=== PATIENT | female | born 1930 | race Two or more races ===

== ENCOUNTER 2017-12-23 03:04 | Inpatient (IN) | payer MEDICARE, OTHER ==
[~2017-12-23] VITALS: Ht 167.6 cm; Wt 62.2 kg
[2017-12-23] VITALS (37 sets, daily range): BP systolic 69–143; BP diastolic 38–85
--- NOTE | 2017-12-23 03:23 | NUR ---
PT TO ER BED 4. PT BIBRA FROM HOME C/O ABD PAIN X 1 WEEK WITH NAUSEA. DENIES V-D. VSS/RESP EVEN UNLABORED/NAD NOTED/AFEBRILE/SKIN WARM AND DRY/AOX4. AWAITING MD GONZALES.
[2017-12-23] MEDS ORDERED: MORPHINE SULFATE INJ 2 MG/ML DISP.SYRIN IV ONE (03:30)
[2017-12-23] MEDS ORDERED: ONDANSETRON HCL/PF 4 MG/2 ML VIAL IVP ONE (03:30)
[2017-12-23] MEDS ORDERED: IV NS 0.9% 500 ML BAG IV ONE (03:30)
--- NOTE | 2017-12-23 03:30 | NUR ---
AT BEDSIDE FOR EVAL.
[2017-12-23] MEDS ORDERED: ONDANSETRON HCL/PF 4 MG/2 ML VIAL ONE (03:31)
[2017-12-23] MEDS ORDERED: MORPHINE SULFATE INJ 4 MG/ML DISP.SYRIN ONE (03:32)
--- NOTE | 2017-12-23 03:35 | NUR ---
20G IV TO L AC X 1 ATTEMPT USING ASEPTIC TECH, BLOOD HANDED OVER TO LAB AT BEDSIDE. IV FLUSHES EASILY WITH NS, NO S/S INFILTRATION NOTED.
--- NOTE | 2017-12-23 03:46 | NUR ---
PT TO CT VIA STRETCHER. VSS.
--- NOTE | 2017-12-23 04:00 | NUR ---
PT BACK FROM CT.
[2017-12-23 04:04] LABS: BASOPHILS # (AUTO) 0.1 /CMM (0.0-0.2); BASOPHILS % (AUTO) 0.8 % (0.0-2.0); EOSINOPHILS # (AUTO) 0.2 /CMM (0.0-0.7); EOSINOPHILS % (AUTO) 1.8 % (0.0-6.0); HEMATOCRIT 37 % (33-45); HEMOGLOBIN 12.3 g/dL (11.5-14.8); LYMPHOCYTES % (AUTO) 27.6 % (20.0-44.0); MEAN CORPUSCULAR HEMOGLOBIN 29 PG (26.0-33.0); MEAN CORPUSCULAR HGB CONC 33 g/dl (31.0-36.0); MEAN CORPUSCULAR VOLUME 87 fL (82-100); MONOCYTES # (AUTO) 0.3 /CMM (0.1-1.30); MONOCYTES % (AUTO) 3.2 % (2.0-12.0); NEUTROPHILS # (AUTO) 7.1 /CMM (1.8-8.9); NEUTROPHILS % (AUTO) 66.6 % (43.0-81.0); PLATELET COUNT (AUTO) 625 /CMM (150-450); RDW COEFFICIENT OF VARIATION 15.6 (11.5-15.0); RED BLOOD CELL COUNT(AUTO) 4.29 MIL/uL (4.0-5.2); WHITE BLOOD COUNT (AUTO) 10.7 K/uL (4.3-11.0)
[2017-12-23 04:19] LABS: CALCIUM, SERUM 9.4 mg/dL (8.5-10.1); CARBON DIOXIDE 24 mmol/L (21-32); CHLORIDE 105 mmol/L (98-107); CREATININE 1.4 mg/dL (0.6-1.3); GLUCOSE 119 mg/dL (74-106); POTASSIUM 3.8 mmol/L (3.5-5.1); SODIUM SERUM 139 mmol/L (136-145); UREA NITROGEN, BLOOD 34 mg/dL (7-18)
[2017-12-23] MEDS ORDERED: PIPERACILLIN /TAZOBACTAM 3.375 G VIAL IV ONE (04:19)
--- NOTE | 2017-12-23 04:20 | NUR ---
LAB AT BEDSIDE TO DRAW BLOOD CULT X 2.
[2017-12-23 04:25] LABS: TROPONIN I < 0.017 ng/mL (0.00-0.056)
[2017-12-23 04:27] LABS: ALANINE AMINOTRANSFERASE 19 U/L (12-78); ALBUMIN 1.8 g/dL (3.4-5.0); ALKALINE PHOSPHATASE 170 U/L (46-116); ASPARTATE AMINOTRANSFERASE 19 U/L (15-37); BILIRUBIN,DIRECT 0.1 mg/dL (0.0-0.2); BILIRUBIN,TOTAL 0.5 mg/dL (0.2-1.0); LIPASE 55 U/L (73-393); TOTAL PROTEIN, SERUM 6.2 g/dL (6.4-8.2)
[2017-12-23] MEDS ORDERED: PIPERACILLIN /TAZOBACTAM 3.375 G in IV D5W 50 ML IV ONE (04:30)
--- NOTE | 2017-12-23 04:34 | NUR ---
DR. HENDRICKSON CALLED; TRANSFERED TO DR. CAI
--- NOTE | 2017-12-23 04:34 | NUR ---
DR. DANDRE DUMAS
[2017-12-23] MEDS ORDERED: IV NS 0.9% 1,000 ML IV PRN (04:38)
[2017-12-23] MEDS ORDERED: MORPHINE SULFATE INJ 2 MG/ML DISP.SYRIN IV PRN (05:00)
[2017-12-23] MEDS ORDERED: FURO-144 PO (05:06)
[2017-12-23] MEDS ORDERED: METO-357 PO (05:06)
[2017-12-23] MEDS ORDERED: VALS160T2 PO (05:06)
[2017-12-23] MEDS ORDERED: FOLI1TAB16 PO (05:06)
[2017-12-23] MEDS ORDERED: ASPI-1169 PO (05:09)
[2017-12-23] MEDS ORDERED: PRAV40TA3 PO (05:09)
[2017-12-23] MEDS ORDERED: LEVO50TA8 PO (05:09)
--- NOTE | 2017-12-23 05:11 | NUR ---
TELE 324-
--- NOTE | 2017-12-23 05:23 | NUR ---
PT STATES SHE "DOES NOT HAVE TO GO TO THE BATHROOM", PT AND PT FAMILY REFUSE CATHETER. MD AWARE AND AT BEDSIDE.
[2017-12-23] MEDS ORDERED: LIDOCAINE 0.5% HCL 50 ML VIAL ONE (05:48)
[2017-12-23] MEDS ORDERED: BUPIVACAINE 0.25% 75 MG/30 ML VIAL ONE (05:48)
[2017-12-23] MEDS ORDERED: ANESTHESIA TRAY IN PYXIS 1 EA TRAY MC ONE (05:48)
--- NOTE | 2017-12-23 05:53 | NUR ---
PT WILL BE GOING TO OR FROM ER.
--- NOTE | 2017-12-23 06:20 | NUR ---
PT TRANSPORTED TO SURGERY VIA STRETCHER WITH OR NURSE. VSS.
[2017-12-23] MEDS: PANTOPRAZOLE 40 MG VIAL IV SCH ×3 (07:30→20:23)
--- NOTE | 2017-12-23 10:34 | NUR ---
CALLED TO RECOVERY AT 09:45AM ABOUT A PT EXTUBATED, THEN RE-INTUBATED DUE TO RESP. FAILURE, VENT NEEDED. VENT TAKEN TO RECOVERY, DR. NICHOLS GAVE VERBAL ORDERS FOR VENT SETTINGS, AC 16, 450, 100%, 0 PEEP. PT RE-TAPED PER DR. NICHOLS REQUEST, PT IS INTUBATED VIA 7.0 ETT AT 21CM AT THE LIP. PT THEN TRANSFERRED FROM RECOVERY TO ICU 120. VENT PLUGGED INTO RED OUTLET. PT ON VENT VIA SAME SETTINGS. AMBU-BAG AT [facility]. NO RESP. DISTRESS NOTED AT THIS TIME. Addendum: 12/23/17 at 1040 by JOSE HEADLEY RT Amended: Links added.
--- NOTE | 2017-12-23 11:00 | NUR ---
SOLE CUTTER ADMITTED INTO ICU FROM OR VIA [facility] WITH MONITOR. PT S/P EXP LAP WITH DUODENAL REPAIR AND LYSIS OF ADHESIONS. PT REINTUBATED IN PACU FOR RESP DISTRESS. PT NOW WITH 7.0 ETT 21 CM AT LIPLINE. CONNECTED ON VENT WITH STABLE SPO2. ABD DRESSINGS INTACT, CLEAN AND DRY. BROOKE DRAIN WITH SEROSANGUINEOUS DRAINAGE. F/C INTACT WITH CLEAR YELLOW URINE. PT REMAINS SEDATED.
--- NOTE | 2017-12-23 11:25 | NUR ---
ICU/RN DR AMOS AT BEDSIDE AND ASSESSED PT.ORDERS RECEIVED.PT WILL RECEIVE 500ML NS WIDE OPEN.PT. LETHARGIC BUT READILY AROUSES. Addendum: 12/24/17 at 0310 by THELMA JACOBSON RN ABOVE NOTES SHOULD BE AT 2325 INSTEAD OF 1125
--- NOTE | 2017-12-23 11:30 | NUR ---
INITIAL PT BACK FROM SURGERY REPORT TAKEN FROM BRAYAN CHARGE NURSE. PT OBTUNDED FROM ANESTHESIA HOWEVER RESPONDS BY OPENING EYES TO DAUGHTER. PT ON VENTILATOR AC 16, VT 450 PEEP 0 FIO2 60% PT HAS MAURO CATHETER DRAINING CLEAR YELLOW 30 CC. PT 20 PIV IN [place]UCHO CLEAN AND DRY NO SWELLING OR REDNESS. PT BLOOD PRESSURE 88 SYSTOLIC MD AWARE GIVEN FLUID BOLUS 500 MLS AND STARTED ON NS DRIP AT 75 MLS PER HOUR. BED IN LOW POSITION ALARMS ON.CALL VERGARA NEXT TO PT.
[2017-12-23 12:15] LABS: ABG BASE EXCESS -6.4 mmol/L; ABG OXYGEN SATURATION 94.9 % (92.0-98.5); ABG PCO2 33.3 mmHg (35.0-45.0); ABG PH 7.358 (7.350-7.450); ABG PO2 86.1 mmHg (75.0-100.0); AaDO2 305.1 mmHg; COHb 0.3 % (0.5-1.5); MetHb 0.1 % (0.0-1.5); O2Hb 94.5 % (94.0-97.0); PEEP,BG 0 cm H2O; SITE, ABG Right Radial; VT, ABG 450 mL
[2017-12-23] MEDS: SUCRALFATE 1 G/10 ML UDC PO SCH ×2 (13:00→20:55)
[2017-12-23] MEDS: ZOSYN IVPB 3.375 G in IV D5W 50ml IV SCH ×3 (13:11→23:30)
[2017-12-23] MEDS: IV D5/0.45 NACL W/20 MEQ KCL 1L IV PRN ×2 (13:25)
[2017-12-23 13:54] LABS: CARBON DIOXIDE 21 mmol/L (21-32); CHLORIDE 112 mmol/L (98-107); CREATININE 1.2 mg/dL (0.6-1.3); GLUCOSE 169 mg/dL (74-106); POTASSIUM 3.7 mmol/L (3.5-5.1); SODIUM SERUM 143 mmol/L (136-145); UREA NITROGEN, BLOOD 30 mg/dL (7-18)
--- NOTE | 2017-12-23 13:54 | NUR ---
DAUGHTER TELEPHONE NUMBER: NAME MAYA HO SEEN BY MD CROWELL
[2017-12-23 14:02] LABS: HEMATOCRIT 32 % (33-45); HEMOGLOBIN 10.3 g/dL (11.5-14.8); LYMPHOCYTES # (AUTO) 0.4 /CMM (0.8-4.8); LYMPHOCYTES % (AUTO) 1.9 % (20.0-44.0); MEAN CORPUSCULAR HEMOGLOBIN 29 PG (26.0-33.0); MEAN CORPUSCULAR HGB CONC 33 g/dl (31.0-36.0); MEAN CORPUSCULAR VOLUME 87 fL (82-100); MONOCYTES # (AUTO) 0.2 /CMM (0.1-1.30); NEUTROPHILS # (AUTO) 22.3 /CMM (1.8-8.9); NEUTROPHILS % (AUTO) 97.1 % (43.0-81.0); PLATELET COUNT (AUTO) 502 /CMM (150-450); RDW COEFFICIENT OF VARIATION 15.1 (11.5-15.0); RED BLOOD CELL COUNT(AUTO) 3.62 MIL/uL (4.0-5.2)
[2017-12-23 14:06] LABS: ALANINE AMINOTRANSFERASE 85 U/L (12-78); ALKALINE PHOSPHATASE 117 U/L (46-116); ASPARTATE AMINOTRANSFERASE 124 U/L (15-37); BILIRUBIN,TOTAL 0.5 mg/dL (0.2-1.0); MAGNESIUM 1.3 mg/dL (1.8-2.4); TOTAL PROTEIN, SERUM 4.5 g/dL (6.4-8.2)
[2017-12-23 14:18] LABS: ALBUMIN 1.3 g/dL (3.4-5.0)
--- NOTE | 2017-12-23 14:27 | NUR ---
NOAH DE SANTIAGO FOR ALBUMIN LAB VALUE
[2017-12-23 14:57] LABS: BAND % (MANUAL) 15 % (0.0-5.0); LYMPHOCYTES % (MANUAL) 2 % (16-48); NEUTROPHILS % (MANUAL) 83 (42-76)
[2017-12-23] MEDS: ONDANSETRON HCL/PF 4 MG/2 ML VIAL IVP PRN ×3 (15:41→18:54)
[2017-12-23] MEDS: Magnesium 1GM/D5W 100ML PREMIX 100 ML IV SCH ×4 (15:41→20:23)
[2017-12-23] MEDS: PROPOFOL 100 ML IV PRN (15:54)
--- NOTE | 2017-12-23 19:32 | NUR ---
ENDING PT REMAINS ON VENTILATOR NO CHANGE IN SETTINGS. ALERT AND ORIENTED FAMILY IN WAITING ROOM CARDIAC STILL NSR ON DIPROVAN AT 10 MCG PIV AND D51/2 NS WITH 20mEQ K+ TEMPERATURE NORMALIZED FROM AM TO 97.5 FROM 94.7 REPORT GIVEN TO THELMA
--- NOTE | 2017-12-23 19:45 | NUR ---
ICU/RN RECEIVED PT.RESTLESS,ATTEMPTING TO PULL LINES AND J-P DRAIN.ON VENT VIA ORAL ETT.ON DIPRIVAN AT 10MCG/KG/MIN.CALM AFTER TALKING TO PATIENT RE:IMPORTANCE OF ABOVE.BP. LOW.CALL PLACED TO DR AMOS VIA EXCHANGE.
[2017-12-23] MEDS ORDERED: IV NS 0.9% 1,000 ML BAG IV PRN (20:00)
[2017-12-23] MEDS ORDERED: IV NS 0.9% 1,000 ML IV ONE (20:00)
--- NOTE | 2017-12-23 20:20 | NUR ---
ICU/RN DR AMOS CALLED BACK AND GAVE ORDERS,NORMAL SALINE 1L WIDE OPEN IV BOLUS.AND BILATERAL WRIST RESTRAINTS APPLIED.FAMILY AT BEDSIDE VISITING,UPDATED W/ PT'S CONDITION.
[2017-12-23] MEDS ORDERED: Magnesium 1GM/D5W 100ML PREMIX 100 ML IV SCH (21:00)
--- NOTE | 2017-12-23 22:09 | NUR ---
pt received on vent via charted route and settings. ambu bag at bedside alarms set and audible. disconnect alarms checked. vent plugged into red outlet. tolerating vent settings at ths time. will continue to monitor Addendum: 12/23/17 at 2209 by CHUCHO DAN RT Amended: Links added.
--- NOTE | 2017-12-23 22:30 | NUR ---
ICU/RN CALL PLACED TO DR AMOS FOR LOW BP.
[2017-12-23] MEDS ORDERED: NOREPINEPHRINE 8 MG in IV D5W 500 ML IV PRN (23:30)
[2017-12-23] MEDS ORDERED: IV NS 0.9% 500 ML IV ONE (23:30)
[2017-12-24] VITALS (65 sets, daily range): BP systolic 72–139; BP diastolic 34–110
--- NOTE | 2017-12-24 | NUR ---
ICU/RN LS=580/54 AFTER SECOND BOLUS OF IV.SEE EMAR.
[2017-12-24] MEDS ORDERED: IV PREMIX D5 1/2NS + KCL 1,000 ML IV ONE (04:18)
[2017-12-24] MEDS: IV D5/0.45 NACL W/20 MEQ KCL 1L IV PRN ×4 (04:29→15:01)
[2017-12-24] MEDS: PROPOFOL 100 ML IV PRN (04:35)
[2017-12-24] MEDS: SUCRALFATE 1 G/10 ML UDC PO SCH ×3 (05:00→21:00)
[2017-12-24 05:01] LABS: HEMATOCRIT 31 % (33-45); HEMOGLOBIN 10.3 g/dL (11.5-14.8); LYMPHOCYTES # (AUTO) 1.5 /CMM (0.8-4.8); LYMPHOCYTES % (AUTO) 6.1 % (20.0-44.0); MEAN CORPUSCULAR HEMOGLOBIN 29 PG (26.0-33.0); MEAN CORPUSCULAR HGB CONC 33 g/dl (31.0-36.0); MEAN CORPUSCULAR VOLUME 88 fL (82-100); MONOCYTES # (AUTO) 0.3 /CMM (0.1-1.30); MONOCYTES % (AUTO) 1.3 % (2.0-12.0); NEUTROPHILS # (AUTO) 22.2 /CMM (1.8-8.9); NEUTROPHILS % (AUTO) 92.6 % (43.0-81.0); PLATELET COUNT (AUTO) 500 /CMM (150-450); RDW COEFFICIENT OF VARIATION 15.5 (11.5-15.0); RED BLOOD CELL COUNT(AUTO) 3.55 MIL/uL (4.0-5.2); WHITE BLOOD COUNT (AUTO) 23.9 K/uL (4.3-11.0)
[2017-12-24] MEDS: MORPHINE SULFATE INJ 4 MG/ML DISP.SYRIN IV PRN ×2 (05:03→22:27)
[2017-12-24 05:16] LABS: CALCIUM, SERUM 8.1 mg/dL (8.5-10.1); CARBON DIOXIDE 17 mmol/L (21-32); CHLORIDE 111 mmol/L (98-107); CREATININE 1.4 mg/dL (0.6-1.3); GLUCOSE 176 mg/dL (74-106); MAGNESIUM 2.8 mg/dL (1.8-2.4); PHOSPHORUS 2.8 mg/dL (2.5-4.9); SODIUM SERUM 140 mmol/L (136-145); UREA NITROGEN, BLOOD 28 mg/dL (7-18)
[2017-12-24] MEDS: ZOSYN IVPB 3.375 G in IV D5W 50ml IV SCH ×4 (05:30→23:37)
[2017-12-24 05:32] LABS: CHOLESTEROL 89 mg/dL (<200); HDL CHOLESTEROL 57 mg/dL (40-60); LDL 24 mg/dL (0-99); THYROID STIMULATING HORMONE 2.836 uIU/mL (0.358-3.74); TRIGLYCERIDES 70 mg/dL (30-150)
[2017-12-24 05:50] LABS: BAND % (MANUAL) 7 % (0.0-5.0); LYMPHOCYTES % (MANUAL) 6 % (16-48); MONOCYTES % (MANUAL) 2 % (0-11.0); NEUTROPHILS % (MANUAL) 85 (42-76)
--- NOTE | 2017-12-24 07:30 | NUR ---
INITIAL PT RESTING COMFORTABLY EASILY AROUSALED NSR ON HEADLIGHT ADJUSTER. ON VENTILATOR RATE 16 PEEP 0 VT 450 FIO2 50% IN NO DISTRESS RESPIRATION EASY.PT SKIN INTACT PT NPO ON FLUIDS D51/2 NS WITH 20 KCL AT 100MLS/HR. SITE CLEAN DRY AND INTACT 29 G. PT HAS ANOTHER PIV IN RAC H/L 20 G FLUSHES EASY. PT HAS BROOKE DRAIN WITH SEROSANGUINEOUS FLUID EVACUATING. PT HAS MAURO DRAINING WITH CLEAR YELLOW OUT PUT. BED IN LOW POSITION ALARMS EXPLORATION DRILLER VERGARA NEXT TP PT.
[2017-12-24] MEDS: PANTOPRAZOLE 40 MG VIAL IV SCH ×2 (08:00→21:01)
--- NOTE | 2017-12-24 08:13 | NUR ---
PT REC'D INTUBATED VIA A 7.0 ETT AT 21CM AT THE LIP. VENT SETTINGS PER MD REQUEST, ALARMS SET AND AUDIBLE PER POLICY. PT IS CURRENTLY OFF SEDATION, IS AWAKE AND ALERT. UNABLE TO COMMUNICATE WITH PT DUE TO PT SPEAKING IRAQI ONLY. PT PLACED ON SIMV 4, PS 12, 40%, +[address] LARSON ORDERS. NO SOB NOTED AT THIS TIME. NICOLLE MARTINEZ IS AWARE. WILL CONTINUE TO MONITOR PT. Addendum: 12/24/17 at 0837 by JOSE HEADLEY RT Amended: Links added.
[2017-12-24 09:28] LABS: ABG BASE EXCESS -8.2 mmol/L; ABG OXYGEN SATURATION 93.8 % (92.0-98.5); ABG PCO2 27.4 mmHg (35.0-45.0); ABG PH 7.378 (7.350-7.450); ABG PO2 76.4 mmHg (75.0-100.0); AaDO2 177.3 mmHg; COHb 0.3 % (0.5-1.5); MetHb 0.3 % (0.0-1.5); O2Hb 93.2 % (94.0-97.0); PEEP,BG 5 cm H2O; SITE, ABG Left Radial
[2017-12-24] MEDS ORDERED: DC PROPOFOL WHEN EXTUBATED XX PRN (12:00)
[2017-12-24 14:00] LABS: ABG OXYGEN SATURATION 95.5 % (92.0-98.5); ABG PH 7.386 (7.350-7.450); ABG PO2 97.1 mmHg (75.0-100.0); AaDO2 154.8 mmHg; COHb 0.2 % (0.5-1.5); MetHb 0.3 % (0.0-1.5); PEEP,BG 5 cm H2O; SITE, ABG Left Radial
--- NOTE | 2017-12-24 14:14 | NUR ---
PT SUCCESSFULLY EXTUBATED PER DR. LARSON ORDERS. NO COMPLICATIONS NOTED DURING THE PROCEDURE. MICHELLE VALVERDE AT BEDSIDE DURING THE PROCEDURE. PT IS AWAKE, ALERT AND SATURATING WELL ON 6LPM NC WITH HUMIDIFIER ON.
[2017-12-24 16:46] LABS: APPEARANCE,URINE SL CLOUDY (CLEAR); BILIRUBIN,URINE NEGATIVE (NEGATIVE); BLOOD, URINE NEGATIVE Ery/uL (NEGATIVE); COLOR,URINE YELLOW (YELLOW); KETONES,URINE NEGATIVE (NEGATIVE); LEUKOCYTE ESTERASE ,URINE NEGATIVE (NEGATIVE); NITRITE, URINE NEGATIVE (NEGATIVE); PROTEIN,URINE NEGATIVE (NEGATIVE); UGLUCOSE NEGATIVE (NEGATIVE); UROBILINOGEN,URINE 0.2 EU/dL (0.2)
[2017-12-24 17:26] LABS: CREATININE, URINE 70.7 MG/DL (30.0-125.0); URINE TOTAL PROTEIN 19.8 mg/dL (0-11.9)
[2017-12-24 17:44] LABS: EOSINOPHIL,URINE None Seen
--- NOTE | 2017-12-24 19:10 | NUR ---
CLOSING PT WEANED OFF PROPOFOL SUCCESSFULLYY AND EXTUBATED AT 1410 REMAINS ON NC AT 4 LPM. PT ALERT ORIENTED X3. NO DISTRESS NOTES RESPIRATION EASY.
--- NOTE | 2017-12-24 19:28 | NUR ---
ICU/RN RECEIVED PT. SLEEPING,AROUSES EASILY.DENIES PAIN.ABDOMINAL DRESSING DRY AND INTACT.J-P TO RT.LOWER QUADRANT DRAINING SEROSANGUINEOUS DRAINAGE.
--- NOTE | 2017-12-24 22:25 | NUR ---
ICU/RN PT C/O SEVERE PAIN.MOANING,GRIMACING AND GRABBING HER STOMACH.MEDICATED W/MORPHINE 2MG IVP ORDERED
[2017-12-25] VITALS (42 sets, daily range): BP systolic 80–135; BP diastolic 39–83
[2017-12-25] MEDS: IV D5/0.45 NACL W/20 MEQ KCL 1L IV PRN ×4 (02:47→14:54)
[2017-12-25] MEDS: SUCRALFATE 1 G/10 ML UDC PO SCH ×4 (05:00→21:23)
--- NOTE | 2017-12-25 05:30 | NUR ---
ICU/RN IV VIA RT WRIST REDDENED AT SITE ALTHOUGH W/ EXCELLENT BLOOD RETURN,IV DC,D.ALSO HEPLOCK VIA LT AC DC'D.SITE REDDENED AND SLIGHTLY SWOLLEN,ARM ELEVATED.#20 ANGIOCATH INSERTED BY RUSTY MARTINEZ VIA LEFT FOOT AFTER FIRST ATTEMPT VIA LT FOREARM.J-P DRAINED 150 ML.W/ LEAKAGE AROUND J-P,REINFORCED W/ 2 4X4 DRESSING.
[2017-12-25] MEDS: ZOSYN IVPB 3.375 G in IV D5W 50ml IV SCH ×4 (05:44→23:51)
[2017-12-25 05:46] LABS: ALANINE AMINOTRANSFERASE 45 U/L (12-78); ALKALINE PHOSPHATASE 123 U/L (46-116); ASPARTATE AMINOTRANSFERASE 29 U/L (15-37); BILIRUBIN,TOTAL 0.5 mg/dL (0.2-1.0); CALCIUM, SERUM 8.4 mg/dL (8.5-10.1); CARBON DIOXIDE 17 mmol/L (21-32); CHLORIDE 111 mmol/L (98-107); CREATININE 1.5 mg/dL (0.6-1.3); GLUCOSE 119 mg/dL (74-106); MAGNESIUM 2.3 mg/dL (1.8-2.4); POTASSIUM 4.3 mmol/L (3.5-5.1); SODIUM SERUM 137 mmol/L (136-145); TOTAL PROTEIN, SERUM 4.3 g/dL (6.4-8.2); UREA NITROGEN, BLOOD 26 mg/dL (7-18)
[2017-12-25 05:48] LABS: HEMATOCRIT 30 % (33-45); HEMOGLOBIN 9.8 g/dL (11.5-14.8); LYMPHOCYTES % (AUTO) 5.4 % (20.0-44.0); MEAN CORPUSCULAR HEMOGLOBIN 29 PG (26.0-33.0); MEAN CORPUSCULAR HGB CONC 33 g/dl (31.0-36.0); MEAN CORPUSCULAR VOLUME 87 fL (82-100); MONOCYTES # (AUTO) 0.1 /CMM (0.1-1.30); MONOCYTES % (AUTO) 0.3 % (2.0-12.0); NEUTROPHILS # (AUTO) 17.4 /CMM (1.8-8.9); NEUTROPHILS % (AUTO) 94.3 % (43.0-81.0); PLATELET COUNT (AUTO) 461 /CMM (150-450); RDW COEFFICIENT OF VARIATION 15.6 (11.5-15.0); RED BLOOD CELL COUNT(AUTO) 3.38 MIL/uL (4.0-5.2); WHITE BLOOD COUNT (AUTO) 18.5 K/uL (4.3-11.0)
[2017-12-25 05:56] LABS: CREATINE KINASE, TOTAL 27 U/L (26-192)
[2017-12-25 07:10] LABS: BAND % (MANUAL) 1 % (0.0-5.0); LYMPHOCYTES % (MANUAL) 7 % (16-48); MONOCYTES % (MANUAL) 1 % (0-11.0); NEUTROPHILS % (MANUAL) 91 (42-76)
--- NOTE | 2017-12-25 07:50 | NUR ---
ESL INSTRUCTIONAL ASSISTANT: pt.is weak, awake, Ox2, Pashto/Somali speaker, SR, SBP over 90 now, got Morphine prn dose over night, O2sat.over 94% on 4L n/c, no c/o pain now, abdomen slightly distended, soft, pain 3-5/10 with palpation, dressings are intact, BROOKE drain is patent with s/s drain
--- NOTE | 2017-12-25 08:15 | NUR ---
ROLLER TURNER: pt.son is in room, notified re pt.status, VS, IVF, orders, BROOKE drain, POC
--- NOTE | 2017-12-25 09:00 | NUR ---
ILLUSIONIST: is in room, updated with pt.current condition, VS, O2sat., BROOKE drain amount, I/O, orders
[2017-12-25] MEDS: PANTOPRAZOLE 40 MG VIAL IV SCH ×2 (09:39→21:24)
[2017-12-25] MEDS ORDERED: NOREPINEPHRINE 8 MG in IV D5W 500 ML IV PRN (10:00)
--- NOTE | 2017-12-25 11:10 | NUR ---
AERONAUTICAL TEST ENGINEER: is in room, updated with pt.current condition, neuro/mental status, VS, SBP 88-95 episodes after Morphine, I/O, BROOKE S/S drain amount, abdomen status, pain level, IVF, albumuin 1.0, O2sat. on 4Ln/c, said: continue monitoring in ICU
--- NOTE | 2017-12-25 13:15 | NUR ---
PROPERTY INSURANCE INSPECTOR: SR, SBP over 90 now, O2sat. WNL, no c/o pain, only with reposition 3-5/10 pain for short period, rechecked s/p laparoscopy order: diet-NPO, Carafate 10mg liquid PO q8h
--- NOTE | 2017-12-25 14:50 | NUR ---
OCCUPATIONAL HEALTH PHYSICIAN: is in room to see pt., updated with pt.VS, c/o, pain level/location (morphine was given over night), NPO, BROOKE drain amount, IVF, confirmed continue Carafate PO, said to do swallow evaluation first, then limited upper GI eval duodenal perforation tomorrow, CBC, BMP in AM
--- NOTE | 2017-12-25 15:30 | NUR ---
ELECTRICAL WIRING LINEMAN: sent message to for orders (limited upper GI XR with contrast? to eval duodenal perforation, until keep NPO) verification d/t computer order details options
--- NOTE | 2017-12-25 17:00 | NUR ---
CONTRACT DRIVER: spoke with : confirmed order: limited upper GI XR with gastrograffin to eval duodenal perforation after swallow evaluation, notified pt.daughter
--- NOTE | 2017-12-25 17:52 | NUR ---
FILM CASTING OPERATOR: pt.is rest, VSS, no c/o pain, only with reposition shortly, JPD patent, abdomen dressings are intact, PM/skin care done
--- NOTE | 2017-12-25 19:40 | NUR ---
RN NOTES PT AWAKE ON BED. CALM AND COOPERATIVE. NO ACUTE RESP DISTRESS. WITH O2 3LPM VIA NC SATING 97% TELE MONITOR REVEALS SR HR 80'S. DENIES PAIN AT THIS TIME. DENIES N/V, WITH BROOKE DRAIN ON RIGHT SIDE OF THE ABDOMEN WITH SEROSANGUINEOUS DRAINAGE. IV SITE ON LEFT FOOT INTACT AND PATENT WITH D5 1/2 NS + 20 MEQ KCL @ 100 CC/HR , FLUSHED WELL NO INFILTRATION OR REDNESS ON THE SITE. MAURO CATH INTACT AND PATENT WITH YELLOW CLEAR COLOR URINE. KEPT PT CLEAN AND DRY. REPOSITIONED FOR SKIN MANAGEMENT. WILL CONTINUE TO MONITOR.
[2017-12-26] VITALS (16 sets, daily range): BP systolic 93–147; BP diastolic 44–75
[2017-12-26] MEDS: ONDANSETRON HCL/PF 4 MG/2 ML VIAL IVP PRN (01:25)
[2017-12-26] MEDS: MORPHINE SULFATE INJ 4 MG/ML DISP.SYRIN IV PRN (02:08)
--- NOTE | 2017-12-26 02:10 | NUR ---
RN NOTES PT. COMPLAINED OF SEVERE PAIN ON HER ABDOMEN, GRIMACING AND TEARY EYE. REPOSITIONED TO BED INEFFECTIVE. PRN PAIN MEDICINE GIVEN ORDERED. WILL RECHECK AFTER 30MINS. TO 1 HR.
--- NOTE | 2017-12-26 02:46 | NUR ---
RN NOTES PT ASLEEP AT THIS TIME EASILY AROUSABLE DECREASE PAIN FROM 9 TO 4/10. GOAL MET
[2017-12-26] MEDS: IV D5/0.45 NACL W/20 MEQ KCL 1L IV PRN ×4 (02:49→20:57)
[2017-12-26 04:48] LABS: BASOPHILS # (AUTO) 0.1 /CMM (0.0-0.2); BASOPHILS % (AUTO) 0.3 % (0.0-2.0); EOSINOPHILS # (AUTO) 0.2 /CMM (0.0-0.7); HEMATOCRIT 28 % (33-45); HEMOGLOBIN 9.2 g/dL (11.5-14.8); LYMPHOCYTES # (AUTO) 0.8 /CMM (0.8-4.8); LYMPHOCYTES % (AUTO) 5.2 % (20.0-44.0); MEAN CORPUSCULAR HEMOGLOBIN 29 PG (26.0-33.0); MEAN CORPUSCULAR HGB CONC 33 g/dl (31.0-36.0); MEAN CORPUSCULAR VOLUME 87 fL (82-100); MONOCYTES # (AUTO) 0.2 /CMM (0.1-1.30); MONOCYTES % (AUTO) 1.1 % (2.0-12.0); NEUTROPHILS % (AUTO) 92.4 % (43.0-81.0); PLATELET COUNT (AUTO) 351 /CMM (150-450); RDW COEFFICIENT OF VARIATION 15.8 (11.5-15.0); RED BLOOD CELL COUNT(AUTO) 3.23 MIL/uL (4.0-5.2); WHITE BLOOD COUNT (AUTO) 15.1 K/uL (4.3-11.0)
[2017-12-26 04:58] LABS: CALCIUM, SERUM 8.7 mg/dL (8.5-10.1); CARBON DIOXIDE 16 mmol/L (21-32); CHLORIDE 114 mmol/L (98-107); CREATININE 1.5 mg/dL (0.6-1.3); GLUCOSE 110 mg/dL (74-106); POTASSIUM 4.7 mmol/L (3.5-5.1); SODIUM SERUM 138 mmol/L (136-145); UREA NITROGEN, BLOOD 23 mg/dL (7-18)
[2017-12-26] MEDS: SUCRALFATE 1 G/10 ML UDC PO SCH ×3 (05:19→20:53)
[2017-12-26] MEDS: ZOSYN IVPB 3.375 G in IV D5W 50ml IV SCH (05:41)
--- NOTE | 2017-12-26 06:48 | NUR ---
RN NOTES PT ASLEEP ON BED. BREATHING EVENA ND UNLABORED. EASILY AROUSABLE DENIES PAIN. NO SIGNIFICANT CHANGES NOTED. AFEBRILE. BP CLOSELY MONITORED. IV SITE REMAINED INTACT AND PATENT. NO SIGNIFICANT CHANGES NOTED. ALL DUE MEDICINE TOLERATED WELL. NO ASE FROM ATB. KEPT PT CLEAN AND DRY. ALL NEEDS ATTENDED. WILL ENDORSED CONTINUITY OF CARE TO AM NURSE.
--- NOTE | 2017-12-26 07:41 | NUR ---
INITIAL ORTHODONTIC TECHNICIAN NOTE RCVD PT SLEEPING EASILY AROUSED TO TOUCH, PT POLISH/SOUTH AFRICAN SPEAKING. SOUTH AFRICAN RESPIRATORY COORDINATOR AT BEDSIDE. PT ALERT X2 PLACE AND NAME. SR ON TELE NO S/O DISTRESS OBSERVED UPON ASSESSMENT. MAURO TO GRAVITY DRAINING CLEAR, YELLOW URINE. BROOKE BULB ON RIGHT SIDE OF ABDOMEN COMPRESSED WITH SEROUS FLUID. LEFT FOOT #20 C/D/I/PATENT. NO S/O INFILTRATION/PHLEBITIS OBSERVED. IVF INFUSING. WILL CONTINUE TO MONITOR PT FOR SAFETY AND COMFORT. CALL LIGHT WITHIN REACH. BED IN LOW AND LOCKED POSITION.
[2017-12-26] MEDS: PANTOPRAZOLE 40 MG VIAL IV SCH ×2 (09:13→20:53)
[2017-12-26 10:21] LABS: *SPE A/G RATIO 0.7 (0.7-1.7); *SPE ALBUMIN 1.5 g/dL (2.9-4.4); *SPE ALPHA-1-GLOBULIN 0.3 g/dL (0.0-0.4); *SPE ALPHA-2-GLOBULIN 0.6 g/dL (0.4-1.0); *SPE BETA GLOBULIN 0.5 g/dL (0.7-1.3); *SPE GLOBULIN, TOTAL 2.3 g/dL (2.2-3.9); *SPE M-SPIKE Not Observed g/dL (Not Observed); *SPEGAMMA GLOBULIN 0.8 g/dL (0.4-1.8)
--- NOTE | 2017-12-26 11:48 | NUR ---
ICU TRANSFER NOTE TO ROOM 118-2 PT TRANSFERRED TO [facility] UNDER TELE STATUS VIA MONITORED BED WITH RN AND RT AT BEDSIDE. PT AWAKE AND ALERT INFORMED OF TRANSFER IN [place] VIA SPECIAL EVENTS MANAGER. SR ON TELE. MAURO TO GRAVITY, BROOKE BULB DRAINED AND DOCUMENTED. IV SITE C/D/I/PATENT. NO S/O INFILTRATION/PHLEBITIS OBSERVED, IVF INFUSING. PT'S CARE ENDORSED TO MICHELLE ATKINSON WHO RECEIVED PT IN ROOM. NO BELONGINGS FOUND AT PT'S BEDSIDE. DR. SANFORD CALLED TO CLARIFY UPPER GI WITH GASTROGRAFIN AND SWALLOW EVAL ORDERS. HE WANTS SWALLOW EVAL TO BE DONE FIRST TO MAKE SURE PT IS SAFE TO SWALLOW CONTRAST FOR UPPER GI STUDY. THIS INFORMATION WAS GIVEN TO ESME SPEECH THERAPIST AND NICOLLE IN RADIOLOGY.
[2017-12-26] MEDS: PIPERACILLIN /TAZOBACTAM 2.25 G in IV NS 0.9% 50 ML IV SCH ×3 (12:02→23:48)
--- NOTE | 2017-12-26 12:05 | NUR ---
INPATIENT TRANSFER NOTE FROM ICU. PT TRANSFERRED TO [facility] UNDER TELE STATUS VIA MONITORED BED. PT AWAKE AND ALERT INFORMED OF TRANSFER IN SPANISH VIA ACCOUNT ADMINISTRATOR. SR ON TELE. MAURO TO GRAVITY, BROOKE BULB DRAINED AND DOCUMENTED. NC TO 3L. IV SITE C/D/I/PATENT. NO S/O INFILTRATION/PHLEBITIS OBSERVED, IVF INFUSING. PT'S CARE REPORT FROM DG RN. NO BELONGINGS FOUND AT PT'S BEDSIDE. PATIENT CALL LIGHT IN REACH, BED LOW, SIDE RAILS UP X2 NO S/S OF INFECTION OR DISTRESS. DR. SANFORD CALLED TO CLARIFY UPPER GI WITH GASTROGRAFIN AND SWALLOW EVAL ORDERS. HE WANTS SWALLOW EVAL TO BE DONE FIRST TO MAKE SURE PT IS SAFE TO SWALLOW CONTRAST FOR UPPER GI STUDY. THIS INFORMATION WAS GIVEN TO ESME SPEECH THERAPIST AND NICOLLE IN RADIOLOGY.
[2017-12-26 12:14] LABS: PTH, INTACT 43 pg/mL (15-65)
[2017-12-26] MEDS ORDERED: DIATR MEGLU/DIATRIZOATE SODIUM 120 ML BOTTLE (GASTROGRAPHIN) ONE (14:04)
--- NOTE | 2017-12-26 20:00 | NUR ---
RN INITIAL NOTES. RECEIVED PT AWAKE AND ALERT IN BED FAMILY AT BED SIDE. SR ON TELE. MAURO TO GRAVITY, BROOKE BULB R SIDED, DRESSING DRY AND INTACT. NC TO 3L. IV SITE C/D/I/PATENT. NO S/O INFILTRATION/PHLEBITIS OBSERVED, IVF INFUSING. PATIENT CALL LIGHT IN REACH, BED LOW, SIDE RAILS UP X2 . NO S/S OF INFECTION OR DISTRESS.WILL CONTINUE TO MONITOR.
--- NOTE | 2017-12-26 21:00 | NUR ---
RN NOTES PT ON CLEARS LIQUID PER DR SANFORD.
[2017-12-27] VITALS: BP 141/71
[2017-12-27 04:00] VITALS: BP 141/71
[2017-12-27] MEDS: SUCRALFATE 1 G/10 ML UDC PO SCH ×3 (05:10→20:33)
[2017-12-27] MEDS: PIPERACILLIN /TAZOBACTAM 2.25 G in IV NS 0.9% 50 ML IV SCH ×4 (05:10→23:24)
[2017-12-27] MEDS: IV D5/0.45 NACL W/20 MEQ KCL 1L IV PRN ×4 (05:16→20:31)
--- NOTE | 2017-12-27 06:37 | NUR ---
RN CLOSING NOTES. PT AWAKE AND ALERT IN BED. ST ON TELE. MAURO TO GRAVITY, BROOKE BULB R SIDED, DRESSING DRY AND INTACT. NC TO 3L. IV SITE C/D/I/PATENT. NO S/O INFILTRATION/PHLEBITIS OBSERVED, IVF INFUSING. PATIENT CALL LIGHT IN REACH, BED LOW, SIDE RAILS UP X2 . NO S/S OF INFECTION OR DISTRESS.WILL ENDORSE TO AM RN .
[2017-12-27 07:47] LABS: BASOPHILS % (AUTO) 0.2 % (0.0-2.0); EOSINOPHILS # (AUTO) 0.3 /CMM (0.0-0.7); EOSINOPHILS % (AUTO) 2.3 % (0.0-6.0); HEMATOCRIT 31 % (33-45); HEMOGLOBIN 10.3 g/dL (11.5-14.8); LYMPHOCYTES # (AUTO) 1.2 /CMM (0.8-4.8); MEAN CORPUSCULAR HEMOGLOBIN 29 PG (26.0-33.0); MEAN CORPUSCULAR HGB CONC 34 g/dl (31.0-36.0); MEAN CORPUSCULAR VOLUME 87 fL (82-100); MONOCYTES # (AUTO) 0.3 /CMM (0.1-1.30); NEUTROPHILS # (AUTO) 12.7 /CMM (1.8-8.9); NEUTROPHILS % (AUTO) 87.5 % (43.0-81.0); PLATELET COUNT (AUTO) 410 /CMM (150-450); RDW COEFFICIENT OF VARIATION 16.1 (11.5-15.0); RED BLOOD CELL COUNT(AUTO) 3.55 MIL/uL (4.0-5.2); WHITE BLOOD COUNT (AUTO) 14.5 K/uL (4.3-11.0)
[2017-12-27 07:58] LABS: CALCIUM, SERUM 8.8 mg/dL (8.5-10.1); CARBON DIOXIDE 16 mmol/L (21-32); CHLORIDE 113 mmol/L (98-107); CREATININE 1.3 mg/dL (0.6-1.3); GLUCOSE 109 mg/dL (74-106); MAGNESIUM 1.9 mg/dL (1.8-2.4); PHOSPHORUS 2.8 mg/dL (2.5-4.9); POTASSIUM 4.6 mmol/L (3.5-5.1); SODIUM SERUM 139 mmol/L (136-145); UREA NITROGEN, BLOOD 19 mg/dL (7-18)
[2017-12-27 08:00] VITALS: BP 146/69
[2017-12-27] MEDS: PANTOPRAZOLE 40 MG VIAL IV SCH ×2 (09:12→20:33)
[2017-12-27] MEDS: ONDANSETRON HCL/PF 4 MG/2 ML VIAL IVP PRN (11:11)
[2017-12-27 12:00] VITALS: BP 127/75
[2017-12-27 16:00] VITALS: BP_SYST 136; BP_DIAS 94; BP_DIAS 97
--- NOTE | 2017-12-27 19:30 | NUR ---
TELE/ RN NOTES: RECEIVED PT. IN BED ALERT TO SELF/AWAKE CALM AND COOPERATIVE. NO S/S OF RESPIRATORY DISTRESS NOTED. NO FACIAL GRIMACES OR MOANING NOTED. WITH O2 @ 3LPM VIA NC SATING 97% TELE MONITOR ST HR 120. DENIES PAIN AT THIS TIME. DENIES N/V, WITH BROOKE DRAIN ON RIGHT SIDE OF THE ABDOMEN WITH SEROSANGUINEOUS DRAINAGE. IV SITE ON LEFT FOOT INTACT AND PATENT WITH D5 1/2 NS + 20 MEQ KCL @ 100 CC/HR , FLUSHED WELL NO S/S INFILTRATION/ INFECTION NOTES. MAURO CATH PATENT AND INTACT DRAINING YELLOW URINE VIA GRAVITY. KEPT PT CLEAN AND DRY. REPOSITIONED FOR SKIN MANAGEMENT. WILL CONTINUE TO MONITOR.
[2017-12-27 20:00] VITALS: BP 152/79
[2017-12-28] VITALS (7 sets, daily range): BP systolic 146–174; BP diastolic 73–106
[2017-12-28] MEDS: PIPERACILLIN /TAZOBACTAM 2.25 G in IV NS 0.9% 50 ML IV SCH ×3 (05:11→17:46)
[2017-12-28] MEDS: ACETAMINOPHEN 325 MG TABLET PO PRN (05:16)
[2017-12-28] MEDS: SUCRALFATE 1 G/10 ML UDC PO SCH ×3 (05:16→21:35)
[2017-12-28] MEDS: IV D5/0.45 NACL W/20 MEQ KCL 1L IV PRN ×2 (06:54)
--- NOTE | 2017-12-28 07:04 | NUR ---
TELE/RN NOTES: NO ACUTE CHANGES NOTED DURING THIS SHIFT. REPORT GIVEN TO NEXT SHIFT NURSE FOR KENYATTA.
--- NOTE | 2017-12-28 07:05 | NUR ---
RN/TELE NOTES: PT. MOVED TO ROOM 114-1.
--- NOTE | 2017-12-28 07:18 | NUR ---
RN NOTES RECEIVED PT FROM SENIOR PORTFOLIO MANAGER, A&0X1-2, CONFUSED, AZERI SPEAKING. ON 3L NC SATING WELL NO SOB OR DISTRESS NOTED. SR ON THE TELE TAY HR 97. MAURO DRAINING TO GRAVITY, YELLOW IN COLOR. L FOOT 20G IV SITE INTACT WITH IVF AT 100ML/HR. BED LOCKED AND IN LOWEST POSITION, CALL LIGHT WITHIN REACH, SIDE RAILS UPX3, WILL CONT TO TAY.
[2017-12-28 07:47] LABS: CALCIUM, SERUM 8.9 mg/dL (8.5-10.1); CARBON DIOXIDE 17 mmol/L (21-32); CHLORIDE 116 mmol/L (98-107); CREATININE 1.1 mg/dL (0.6-1.3); GLUCOSE 103 mg/dL (74-106); MAGNESIUM 1.6 mg/dL (1.8-2.4); PHOSPHORUS 2.6 mg/dL (2.5-4.9); POTASSIUM 4.9 mmol/L (3.5-5.1); SODIUM SERUM 141 mmol/L (136-145); UREA NITROGEN, BLOOD 15 mg/dL (7-18)
[2017-12-28] MEDS: ATORVASTATIN 10 MG TABLET PO SCH (08:32)
[2017-12-28] MEDS: FOLIC ACID 1 MG TABLET PO SCH (08:32)
[2017-12-28] MEDS: LEVOTHYROXINE SODIUM 50 MCG TABLET PO SCH (08:33)
[2017-12-28] MEDS: FUROSEMIDE 40 MG TABLET PO SCH (08:33)
[2017-12-28] MEDS: METOPROLOL SUCCINATE 50 MG TAB.SR.24H PO SCH (08:33)
[2017-12-28] MEDS: PANTOPRAZOLE 40 MG VIAL IV SCH ×2 (08:33→21:35)
[2017-12-28] MEDS: ASPIRIN 81 MG TAB.CHEW PO SCH (08:33)
[2017-12-28] MEDS ORDERED: Medication Not On Formulary EA (Pravastatin Sodium 1 TAB) PO SCH (09:00)
[2017-12-28 09:12] LABS: BASOPHILS % (AUTO) 0.4 % (0.0-2.0); EOSINOPHILS # (AUTO) 0.2 /CMM (0.0-0.7); EOSINOPHILS % (AUTO) 1.5 % (0.0-6.0); HEMATOCRIT 31 % (33-45); HEMOGLOBIN 10.4 g/dL (11.5-14.8); LYMPHOCYTES # (AUTO) 1.2 /CMM (0.8-4.8); LYMPHOCYTES % (AUTO) 10.3 % (20.0-44.0); MEAN CORPUSCULAR HEMOGLOBIN 29 PG (26.0-33.0); MEAN CORPUSCULAR HGB CONC 33 g/dl (31.0-36.0); MEAN CORPUSCULAR VOLUME 86 fL (82-100); MONOCYTES # (AUTO) 0.4 /CMM (0.1-1.30); NEUTROPHILS % (AUTO) 84.8 % (43.0-81.0); PLATELET COUNT (AUTO) 461 /CMM (150-450); RDW COEFFICIENT OF VARIATION 15.5 (11.5-15.0); RED BLOOD CELL COUNT(AUTO) 3.63 MIL/uL (4.0-5.2); WHITE BLOOD COUNT (AUTO) 11.8 K/uL (4.3-11.0)
[2017-12-28] MEDS: Magnesium 1GM/D5W 100ML PREMIX 100 ML IV SCH ×3 (12:25→15:59)
[2017-12-28] MEDS ORDERED: hydrALAZINE HCL IV 20 MG VIAL IV PRN (15:00)
--- NOTE | 2017-12-28 19:30 | NUR ---
TELE1/RN RECEIVE PATIENT AWAKE, ALERT, CONFUSED, COMFORTABLE, NO S/S OF PAIN, NO DISTRESS NOTED, BROOKE DRAIN RLQ INTACT WITH MINIMAL SEROUS OUTPUT, LAP SITES X 3 IN ABDOMEN NOTED, CLEAN AND INTACT, CALL LIGHT IN REACH. FALL PRECAUTION PER PROTOCOL. WILL MONITOR.
[2017-12-29] VITALS: BP 159/79
[2017-12-29] MEDS: PIPERACILLIN /TAZOBACTAM 2.25 G in IV NS 0.9% 50 ML IV SCH ×4 (00:03→17:14)
[2017-12-29 04:00] VITALS: BP 149/80
[2017-12-29] MEDS: SUCRALFATE 1 G/10 ML UDC PO SCH ×3 (05:10→20:38)
[2017-12-29 05:39] VITALS: BP 149/80
--- NOTE | 2017-12-29 06:50 | NUR ---
TELE/RN PATIENT IS AWAKE, CONFUSED, COMFORTABLE, NO DISTRESS NOTE, HAD A GOOD SLEEP THE WHOLE SHIFT, ALL NEEDS ATTENDED AT THIS TIME. WILL CONTINUE TO MONITOR.
[2017-12-29 07:20] LABS: BASOPHILS % (AUTO) 0.2 % (0.0-2.0); EOSINOPHILS # (AUTO) 0.2 /CMM (0.0-0.7); EOSINOPHILS % (AUTO) 1.6 % (0.0-6.0); HEMATOCRIT 33 % (33-45); HEMOGLOBIN 11.1 g/dL (11.5-14.8); LYMPHOCYTES # (AUTO) 1.3 /CMM (0.8-4.8); LYMPHOCYTES % (AUTO) 8.4 % (20.0-44.0); MEAN CORPUSCULAR HEMOGLOBIN 29 PG (26.0-33.0); MEAN CORPUSCULAR HGB CONC 34 g/dl (31.0-36.0); MEAN CORPUSCULAR VOLUME 86 fL (82-100); MONOCYTES # (AUTO) 0.4 /CMM (0.1-1.30); MONOCYTES % (AUTO) 2.3 % (2.0-12.0); NEUTROPHILS # (AUTO) 13.8 /CMM (1.8-8.9); NEUTROPHILS % (AUTO) 87.5 % (43.0-81.0); PLATELET COUNT (AUTO) 519 /CMM (150-450); RDW COEFFICIENT OF VARIATION 15.6 (11.5-15.0); RED BLOOD CELL COUNT(AUTO) 3.82 MIL/uL (4.0-5.2); WHITE BLOOD COUNT (AUTO) 15.8 K/uL (4.3-11.0)
[2017-12-29 07:28] LABS: CALCIUM, SERUM 9.5 mg/dL (8.5-10.1); CARBON DIOXIDE 20 mmol/L (21-32); CHLORIDE 116 mmol/L (98-107); GLUCOSE 82 mg/dL (74-106); MAGNESIUM 2.1 mg/dL (1.8-2.4); SODIUM SERUM 144 mmol/L (136-145); UREA NITROGEN, BLOOD 14 mg/dL (7-18)
--- NOTE | 2017-12-29 07:30 | NUR ---
PLAYBACK OPERATOR AM NOTES PT IN BED, AWAKE, ALERT, CONFUSED, S/P EX LAP EXTENSIVE LYSIS OF ADHESION, REPAIR OF DUODENAL PERFORATION AND GB PERFORATION BY DR. SANFORD ON 2251104, ON 2L O2, RESPIRATION EVEN AND UNLABORED, TELEMETRY READS SR HR 86, NO SIGNS OF PAIN, LEFT FOOT HL G20 FLUSHES WELL, SITE CLEAR, LAP SITE IN ABDOMEN X 3, CDI DRESSING, BROOKE DRAIN ON RLQ WITH SEROUS DRAINIAGE EST 5 ML. F/C IN PLACE WITH YELLOW URINE OUTPUT, PUREED DIET, WILL TURN AND REPOSITION Q 2HOURS, SAFETY MEASURES IN PLACE, CALL LIGHT WITHIN REACH , WILL CONTINUE TO MONITOR.
[2017-12-29 08:00] VITALS: BP_SYST 130; BP_SYST 145; BP_SYST 149; BP_DIAS 68; BP_DIAS 75; BP_DIAS 80
[2017-12-29] MEDS: PANTOPRAZOLE 40 MG VIAL IV SCH ×2 (08:30→20:38)
[2017-12-29] MEDS: FUROSEMIDE 40 MG TABLET PO SCH (08:30)
[2017-12-29] MEDS: FOLIC ACID 1 MG TABLET PO SCH (08:30)
[2017-12-29] MEDS: LEVOTHYROXINE SODIUM 50 MCG TABLET PO SCH (08:30)
[2017-12-29] MEDS: ASPIRIN 81 MG TAB.CHEW PO SCH (08:30)
[2017-12-29] MEDS: METOPROLOL SUCCINATE 50 MG TAB.SR.24H PO SCH (08:31)
[2017-12-29] MEDS: ATORVASTATIN 10 MG TABLET PO SCH (08:31)
--- NOTE | 2017-12-29 09:30 | NUR ---
ASSISTANT BANQUET MANAGER NOTES DUE MEDS GIVEN
--- NOTE | 2017-12-29 09:49 | NUR ---
MS RN NOTES DC TELEMETRY PER DR. ZELAYA
--- NOTE | 2017-12-29 11:53 | NUR ---
MS RN NOTES ZOSYN IV STARTED.
[2017-12-29 16:00] VITALS: BP 148/80
--- NOTE | 2017-12-29 17:14 | NUR ---
MS RN NOTES ZOSYN IV STARTED.
--- NOTE | 2017-12-29 18:28 | NUR ---
MS RN CLOSING NOTES PT RESTRING IN BED, COMFORTABLE AT THIS TIME, ALERT, CONFUSED, S/P EX LAP EXTENSIVE LYSIS OF ADHESION, REPAIR OF DUODENAL PERFORATION AND GB PERFORATION BY DR. SANFORD ON 2251104, ON 2L O2, RESPIRATION EVEN AND UNLABORED, NO SIGNS OF PAIN, LEFT FOOT HL G20 FLUSHES WELL, SITE CLEAR, LAP SITE IN ABDOMEN X 3, CDI DRESSING, BROOKE DRAIN ON RLQ WITH SEROUS DRAINIAGE 75 ML. F/C IN PLACE WITH 1500 YELLOW URINE OUTPUT, PUREED DIET, TURNED AND REPOSITIONED Q 2HOURS, PM CARE DONE. SAFETY MEASURES IN PLACE, CALL LIGHT WITHIN REACH , AT BEDSIDE. ALL NEEDS MET, NO OTHER SIGNIFICANT CHANGE IN CONDITION. ALL NEEDS MET. WILL ENDORSE TO NEXT SHIFT FOR KENYATTA.
[2017-12-29 20:00] VITALS: BP 166/70
--- NOTE | 2017-12-29 21:00 | NUR ---
SALVAGE SUPERVISOR NOTES PATIENT SEEN BY DR. JENNY SANFORD. WITH NEW ORDERS CAT SCAN ABDOMEN AND PELVIS WITH NO CONTRAST IN AM. ORDERS NOTED AND CARRIED OUT. MD ALSO VERBALIZE TO PUT A SUTURE REMOVAL KIT AT BEDSIDE.
[2017-12-30] VITALS: BP 134/64
[2017-12-30] MEDS: PIPERACILLIN /TAZOBACTAM 2.25 G in IV NS 0.9% 50 ML IV SCH ×5 (00:12→23:11)
[2017-12-30 04:00] VITALS: BP 134/52
[2017-12-30] MEDS: SUCRALFATE 1 G/10 ML UDC PO SCH ×3 (05:25→22:06)
--- NOTE | 2017-12-30 07:35 | NUR ---
RN Initial note Patient awake, alert, with episodes of confusion, S/P ex lap extensive lysis adhesion repair duodenal perforation and gallbladder perforation. Surgical sites is intact with no redness or infection noted. RLQ BROOKE intact and patent removed 30ml of fluids. Breathing even and nonlabored with continuous O2 via NC @ 2LPM saturation 95%. FC intact and patent with adequate flow of urine. IV site of the left foot is flushed and patent. All safety measures provided. Bed locked, side rails up in proper position, call light with in reach. Will continue to provide care.
[2017-12-30 08:00] VITALS: BP 154/70
[2017-12-30 08:10] LABS: BASOPHILS % (AUTO) 0.2 % (0.0-2.0); EOSINOPHILS # (AUTO) 0.3 /CMM (0.0-0.7); EOSINOPHILS % (AUTO) 2.1 % (0.0-6.0); HEMATOCRIT 29 % (33-45); HEMOGLOBIN 9.8 g/dL (11.5-14.8); LYMPHOCYTES # (AUTO) 1.5 /CMM (0.8-4.8); LYMPHOCYTES % (AUTO) 10.7 % (20.0-44.0); MEAN CORPUSCULAR HEMOGLOBIN 29 PG (26.0-33.0); MEAN CORPUSCULAR HGB CONC 34 g/dl (31.0-36.0); MEAN CORPUSCULAR VOLUME 84 fL (82-100); MONOCYTES # (AUTO) 0.3 /CMM (0.1-1.30); MONOCYTES % (AUTO) 2.5 % (2.0-12.0); NEUTROPHILS # (AUTO) 11.7 /CMM (1.8-8.9); NEUTROPHILS % (AUTO) 84.5 % (43.0-81.0); PLATELET COUNT (AUTO) 435 /CMM (150-450); RDW COEFFICIENT OF VARIATION 15.4 (11.5-15.0); RED BLOOD CELL COUNT(AUTO) 3.45 MIL/uL (4.0-5.2); WHITE BLOOD COUNT (AUTO) 13.9 K/uL (4.3-11.0)
[2017-12-30 08:22] LABS: CALCIUM, SERUM 8.4 mg/dL (8.5-10.1); CARBON DIOXIDE 19 mmol/L (21-32); CHLORIDE 111 mmol/L (98-107); CREATININE 0.9 mg/dL (0.6-1.3); GLUCOSE 85 mg/dL (74-106); MAGNESIUM 1.5 mg/dL (1.8-2.4); PHOSPHORUS 2.8 mg/dL (2.5-4.9); POTASSIUM 3.4 mmol/L (3.5-5.1); SODIUM SERUM 139 mmol/L (136-145); UREA NITROGEN, BLOOD 12 mg/dL (7-18)
[2017-12-30] MEDS: PANTOPRAZOLE 40 MG VIAL IV SCH ×2 (08:54→22:06)
[2017-12-30] MEDS: ATORVASTATIN 10 MG TABLET PO SCH (08:55)
[2017-12-30] MEDS: METOPROLOL SUCCINATE 50 MG TAB.SR.24H PO SCH (08:55)
[2017-12-30] MEDS: FUROSEMIDE 40 MG TABLET PO SCH (08:55)
[2017-12-30] MEDS: FOLIC ACID 1 MG TABLET PO SCH (08:55)
[2017-12-30] MEDS: ASPIRIN 81 MG TAB.CHEW PO SCH (08:56)
[2017-12-30] MEDS: LEVOTHYROXINE SODIUM 50 MCG TABLET PO SCH (08:56)
[2017-12-30] MEDS: ACETAMINOPHEN 325 MG TABLET PO PRN (09:05)
[2017-12-30] MEDS ORDERED: POTASSIUM CHLORIDE 20 MEQ POWDER PACKET NG SCH (09:30)
[2017-12-30] MEDS: Magnesium 1GM/D5W 100ML PREMIX 100 ML IV SCH ×2 (09:52→10:44)
[2017-12-30] MEDS: ENOXAPARIN SODIUM 30 MG/0.3 ML DISP.SYRIN SQ SCH (10:46)
--- NOTE | 2017-12-30 14:00 | NUR ---
RN NOTE PT HAD A BM X1, ABDOMINAL SURGICAL SITE INTACT WITH NO S/S OF INFECTION NOTED, BROOKE DRAIN INTACT. WILL CONTINUE TO MONITOR
[2017-12-30 16:00] VITALS: BP 160/83
--- NOTE | 2017-12-30 18:00 | NUR ---
RN CLOSING NOTES PT REMAIN STABLE WITH NO SOB OR DISTRESS. CONTINUE WITH CONTINUOUS O2 VIA NC. FC INTACT AND PATENT. BROOKE DRAINED TOTAL OF 140ML OF YELLOW DRAINAGE. SIDERAILS UP, BED LOCKED POSITION. WILL ENDORSE TO PM SHIFT FRO KENYATTA
[2017-12-30 20:00] VITALS: BP 152/68
[2017-12-31 04:00] VITALS: BP 144/74
[2017-12-31] MEDS: PIPERACILLIN /TAZOBACTAM 2.25 G in IV NS 0.9% 50 ML IV SCH ×3 (05:07→18:00)
[2017-12-31] MEDS: SUCRALFATE 1 G/10 ML UDC PO SCH ×3 (05:07→21:00)
--- NOTE | 2017-12-31 07:30 | NUR ---
INITIAL Patient awake and alert. Not on monitor tech. Pt S/P ex lap extensive lysis adhesion repair duodenal perforation and gallbladder perforation. Surgical sites is intact with no redness or infection noted. RLQ BROOKE intact draining 10 ml serious fluid. pt on Pure diet Breathing even and non-labored with continuous O2 via NC @ 2LPM saturation 95%. FC intact and patent with adequate flow of urine. IV site of the left foot is flushed and patent. pt has a second PIV 22g in right wrist clean dry and intact. All safety measures provided. Bed locked, side rails up in proper position, call light with in reach. Will continue to provide care.
[2017-12-31 08:00] VITALS: BP 161/74
[2017-12-31 08:06] LABS: CALCIUM, SERUM 8.4 mg/dL (8.5-10.1); CARBON DIOXIDE 24 mmol/L (21-32); CHLORIDE 111 mmol/L (98-107); GLUCOSE 84 mg/dL (74-106); MAGNESIUM 1.7 mg/dL (1.8-2.4); PHOSPHORUS 2.9 mg/dL (2.5-4.9); POTASSIUM 3.3 mmol/L (3.5-5.1); SODIUM SERUM 143 mmol/L (136-145); UREA NITROGEN, BLOOD 12 mg/dL (7-18)
[2017-12-31 08:07] LABS: BASOPHILS % (AUTO) 0.3 % (0.0-2.0); EOSINOPHILS # (AUTO) 0.3 /CMM (0.0-0.7); EOSINOPHILS % (AUTO) 2.2 % (0.0-6.0); HEMATOCRIT 29 % (33-45); HEMOGLOBIN 9.9 g/dL (11.5-14.8); LYMPHOCYTES # (AUTO) 1.7 /CMM (0.8-4.8); LYMPHOCYTES % (AUTO) 12.2 % (20.0-44.0); MEAN CORPUSCULAR HEMOGLOBIN 29 PG (26.0-33.0); MEAN CORPUSCULAR HGB CONC 34 g/dl (31.0-36.0); MEAN CORPUSCULAR VOLUME 86 fL (82-100); MONOCYTES # (AUTO) 0.4 /CMM (0.1-1.30); MONOCYTES % (AUTO) 2.6 % (2.0-12.0); NEUTROPHILS # (AUTO) 11.5 /CMM (1.8-8.9); NEUTROPHILS % (AUTO) 82.7 % (43.0-81.0); PLATELET COUNT (AUTO) 524 /CMM (150-450); RDW COEFFICIENT OF VARIATION 14.9 (11.5-15.0); WHITE BLOOD COUNT (AUTO) 13.9 K/uL (4.3-11.0)
[2017-12-31] MEDS: FOLIC ACID 1 MG TABLET PO SCH (08:45)
[2017-12-31] MEDS: PANTOPRAZOLE 40 MG VIAL IV SCH ×2 (08:45→21:00)
[2017-12-31] MEDS: ATORVASTATIN 10 MG TABLET PO SCH (08:47)
[2017-12-31] MEDS: FUROSEMIDE 40 MG TABLET PO SCH (08:47)
[2017-12-31] MEDS: LEVOTHYROXINE SODIUM 50 MCG TABLET PO SCH (08:47)
[2017-12-31] MEDS: METOPROLOL SUCCINATE 50 MG TAB.SR.24H PO SCH (08:47)
[2017-12-31] MEDS: ASPIRIN 81 MG TAB.CHEW PO SCH (08:47)
[2017-12-31] MEDS: ENOXAPARIN SODIUM 30 MG/0.3 ML DISP.SYRIN SQ SCH (08:50)
[2017-12-31] MEDS ORDERED: POTASSIUM CHLORIDE 20 MEQ TAB.PRT.SR PO SCH (11:00)
[2017-12-31] MEDS ORDERED: Z GUARD REMEDY 4 OZ OINT TP PRN (11:00)
[2017-12-31] MEDS: Magnesium 1GM/D5W 100ML PREMIX 100 ML IV SCH ×2 (11:14→13:05)
[2017-12-31 12:00] VITALS: BP 147/70
[2017-12-31 16:00] VITALS: BP 146/69
--- NOTE | 2017-12-31 19:11 | NUR ---
CLOSING PT RESTRING IN BED, COMFORTABLE AT THIS TIME, ALERT, BUT WITH PERIODS OF CONFUSION 14105, ON 2L O2, RESPIRATION EVEN AND UNLABORED, NO SIGNS OF PAIN, LEFT FOOT HL G20 FLUSHES WELL, SITE CLEAR, LAP SITE IN ABDOMEN X CLEAN AND DRY, BROOKE DRAIN ON RLQ WITH SEROUS DRAINAGE 45 ML. F/C IN PLACE WITH 450 YELLOW URINE OUTPUT, PUREED DIET, TURNED AND REPOSITIONED Q 2HOURS, PM CARE DONE. SAFETY MEASURES IN PLACE, CALL LIGHT WITHIN REACH ALL NEEDS MET, NO OTHER SIGNIFICANT CHANGE IN CONDITION. ALL NEEDS MET. WILL ENDORSE TO NEXT SHIFT.
[2017-12-31 20:00] VITALS: BP 107/61
--- NOTE | 2018-01-01 | NUR ---
RN MS NOTES, PATIENT IN BED AWAKE AT THIS TIME, BREATHING EVEN AND UNLABORED, NO SOB/ACUTE DISTRESS NOTED, MD AT BEDSIDE AT THIS TIME AND REMOVED THE BROOKE DRAINAGE AT THIS TIME, PATIENT TOLERATED PROCEDURE WELL, NO C/O PAIN AT THIS TIME, NO BLEEDING NOTED, CLEAN AND DRY DRESSING APPLIED, WILL CONTINUE TO MONITOR CLOSELY.
[2018-01-01] MEDS: PIPERACILLIN /TAZOBACTAM 2.25 G in IV NS 0.9% 50 ML IV SCH ×4 (00:02→17:23)
[2018-01-01 04:00] VITALS: BP 107/56
[2018-01-01] MEDS: SUCRALFATE 1 G/10 ML UDC PO SCH ×3 (05:32→21:16)
--- NOTE | 2018-01-01 06:50 | NUR ---
RN MS NOTES, PATIENT AWAKE AT THIS TIME, NO SOB/ACUTE DISTRESS NOTED, BREATHING EVEN AND UNLABORED, NO CHANGE IN CONDITION THROUGHPUT THE SHIFT, ALL MEDICATIONS AND NEED PROVIDED, KEPT DRY AND CLEAN AND REPOSITION PROVIDED Q2HRS AND PRN, F/C DRAINING YELLOW COLOR URINE BY GRAVITY, IV SITES INTACT, BED LOCKED AND IN LOWEST POSITION, WILL ENDORSE CONTINUITY OF CARE TO ONCOMING NURSE.
--- NOTE | 2018-01-01 07:23 | NUR ---
RN NOTES RECEIVED PT FROM NUTRITION TECHNICIAN, A&0X1, BENGALI SPEAKING. ON 2L NC SATING WELL NO SOB OR DISTRESS NOTED. MAURO DRAINING TO GRAVITY, YELLOW IN COLOR. RH, LFOOT IV SITE INTACT NO IVF. NO COMPLAINTS OF PAIN. BED LOCKED AND IN LOWEST POSITION, CALL LIGHT WITHIN REACH, SIDE RAILS UPX3, WILL CONT TO TAY.
[2018-01-01 07:58] LABS: CALCIUM, SERUM 8.3 mg/dL (8.5-10.1); CARBON DIOXIDE 27 mmol/L (21-32); CHLORIDE 110 mmol/L (98-107); GLUCOSE 105 mg/dL (74-106); MAGNESIUM 1.8 mg/dL (1.8-2.4); POTASSIUM 3.1 mmol/L (3.5-5.1); SODIUM SERUM 141 mmol/L (136-145); UREA NITROGEN, BLOOD 10 mg/dL (7-18)
[2018-01-01 08:00] VITALS: BP 145/70
[2018-01-01] MEDS: PANTOPRAZOLE 40 MG VIAL IV SCH ×2 (08:40→21:15)
[2018-01-01] MEDS: ATORVASTATIN 10 MG TABLET PO SCH (08:40)
[2018-01-01] MEDS: FUROSEMIDE 40 MG TABLET PO SCH (08:40)
[2018-01-01] MEDS: FOLIC ACID 1 MG TABLET PO SCH (08:40)
[2018-01-01] MEDS: LEVOTHYROXINE SODIUM 50 MCG TABLET PO SCH (08:40)
[2018-01-01] MEDS: ASPIRIN 81 MG TAB.CHEW PO SCH (08:40)
[2018-01-01] MEDS: METOPROLOL SUCCINATE 50 MG TAB.SR.24H PO SCH (08:41)
[2018-01-01] MEDS: ENOXAPARIN SODIUM 30 MG/0.3 ML DISP.SYRIN SQ SCH (08:43)
[2018-01-01] MEDS: ACETAMINOPHEN 325 MG TABLET PO PRN (09:48)
[2018-01-01 12:00] VITALS: BP 145/73
[2018-01-01] MEDS: POTASSIUM CL. PREMIX PERIPHER. 50 ML IV SCH ×2 (14:05→15:13)
[2018-01-01] MEDS ORDERED: POTASSIUM CHLORIDE 20 MEQ POWDER PACKET GT ONE ×2 (15:30→16:00)
[2018-01-01 16:00] VITALS: BP 141/66
--- NOTE | 2018-01-01 18:41 | NUR ---
RN NOTES PT TO BE DISCHARGED TO [facility]. REPORT GIVEN, FAMILY MADE AWARE. WILL ENDORSE TO ONCOMING SHIFT. ALL NEEDS MET, PT REMAINS IN STABLE CONDITION.
[2018-01-01 20:00] VITALS: BP 148/71
--- NOTE | 2018-01-01 20:25 | NUR ---
rn notes in bed resting comfortably with no respiratory distress or shortness of breath. alert and responsive with confusion. no complaint of pain of discomfort. vital signs wnl. pittman cath patent and intact draining clear yellow with no foul odor urine. abdomen soft and non tender. kept clean and dry. will continue to monitor.
--- NOTE | 2018-01-01 21:40 | NUR ---
RN NOTES - FOLLOW UP CALL TO [facility] CALLED [facility] TO FOLLOW UP REGARDING ESTIMATED TIME OF ARRIVAL, SINCE PATIENT WAS TO BE PICKED UP @ 1900, THEN THE TIME WAS PUSHED BACK TO 2029, AMBULANCE STILL NOT HERE AT BEDSIDE. PER THELMA, THE AMBULANCE WILL BE HERE IN APPROXIMATELY 13 MINUTES. CALL BACK NUMBER FOR [facility] GIVEN TO THELMA, ASKED HER TO CALL BACK WHEN AMBULANCE GETS HERE, OR IF ANY ISSUES ARISE.
--- NOTE | 2018-01-01 22:30 | NUR ---
rn notes picked up by ambulance in stable condition. vital signs wnl. alert and responsive. no complaint of pain or discomfort. son at bedside. kept clean and dry
== END 2018-01-01 23:00 | DRG 853 ==
LOC: ER 03:06 → TELE 05:11 → ICU 10:17 → TELE-TD 12-26 11:20 → TELE1 12-26 11:49 → MEDSG1 12-29 09:37
PROC: 5A1945Z Respiratory Ventilation, 24-96 Consecutive Hours (ICD-10-PCS; 2017-12-23)
PROC: 0BH17EZ Insertion of Endotracheal Airway into Trachea, Via Natural or Artificial Opening (ICD-10-PCS; 2017-12-23)
PROC: 0DU947Z Supplement Duodenum with Autologous Tissue Substitute, Percutaneous Endoscopic Approach (ICD-10-PCS; principal; 2017-12-23 07:27)
DX: A41.9 Sepsis, unspecified organism (principal); R65.21 Severe sepsis with septic shock; J96.01 Acute respiratory failure with hypoxia; N17.0 Acute kidney failure with tubular necrosis; E43 Unspecified severe protein-calorie malnutrition; G93.41 Metabolic encephalopathy; K26.5 Chronic or unspecified duodenal ulcer with perforation; J90 Pleural effusion, not elsewhere classified; K65.9 Peritonitis, unspecified; E87.2 Acidosis; J98.11 Atelectasis; N10 Acute pyelonephritis; K92.1 Melena; I48.91 Unspecified atrial fibrillation; K44.9 Diaphragmatic hernia without obstruction or gangrene; E03.9 Hypothyroidism, unspecified; E78.5 Hyperlipidemia, unspecified; M06.9 Rheumatoid arthritis, unspecified; F03.90 Unspecified dementia, unspecified severity, without behavioral disturbance, psychotic disturbance, mood disturbance, and anxiety; Z95.1 Presence of aortocoronary bypass graft; D47.3 Essential (hemorrhagic) thrombocythemia; K66.8 Other specified disorders of peritoneum; D72.829 Elevated white blood cell count, unspecified; N18.9 Chronic kidney disease, unspecified; I12.9 Hypertensive chronic kidney disease with stage 1 through stage 4 chronic kidney disease, or unspecified chronic kidney disease; N13.9 Obstructive and reflux uropathy, unspecified
CPT/HCPCS: 31720; 36415; 36600; 71045-TC; 74246-TC; 80048-TC; 80053-TC; 80061-TC; 80076-TC; 81000-TC; 82550-TC; 82570-TC; 82803-TC; 83605-TC; 83690-TC; 83735-TC; 83970; 84100-TC; 84155; 84155-TC; 84165; 84300-TC; 84443-TC; 84484-TC; 85025-TC; 85378-TC; 85730-TC; 87040-TC; 87081-TC; 92526; 92611-TC; 94002-TC; 94003-TC; 94799-TC; 97110-TC; 97530-TC; A4216; A4606; A6209; A6402; A6403; C9113; J1100; J1650; J1885; J2270; J2405; J2543; J3475; J3480; J3490; J7030; J7040; J7060; Q9963; Z7610

== ENCOUNTER 2018-01-08 18:50 | Inpatient (IN) | payer MEDICARE, OTHER ==
[~2018-01-08] VITALS: Ht 162.6 cm; Wt 46.7 kg
[2018-01-08] VITALS: BP 149/90
[~2018-01-08 18:50] MED LIST: ASPI-1169 PO; FOLI1TAB16 PO; FURO-144 PO; LEVO50TA8 PO; METO-357 PO; PRAV40TA3 PO; VALS160T2 PO
[2018-01-08] MEDS ORDERED: IV NS 0.9% 500 ML BAG IV ONE (19:30)
[2018-01-08 19:52] LABS: BASOPHILS % (AUTO) 0.4 % (0.0-2.0); EOSINOPHILS # (AUTO) 0.1 /CMM (0.0-0.7); EOSINOPHILS % (AUTO) 0.7 % (0.0-6.0); HEMATOCRIT 27 % (33-45); HEMOGLOBIN 8.8 g/dL (11.5-14.8); LYMPHOCYTES # (AUTO) 0.8 /CMM (0.8-4.8); LYMPHOCYTES % (AUTO) 6.8 % (20.0-44.0); MEAN CORPUSCULAR HEMOGLOBIN 28 PG (26.0-33.0); MEAN CORPUSCULAR HGB CONC 33 g/dl (31.0-36.0); MEAN CORPUSCULAR VOLUME 86 fL (82-100); MONOCYTES # (AUTO) 0.4 /CMM (0.1-1.30); MONOCYTES % (AUTO) 3.4 % (2.0-12.0); NEUTROPHILS # (AUTO) 10.5 /CMM (1.8-8.9); NEUTROPHILS % (AUTO) 88.7 % (43.0-81.0); PLATELET COUNT (AUTO) 818 /CMM (150-450); RDW COEFFICIENT OF VARIATION 16.5 (11.5-15.0); WHITE BLOOD COUNT (AUTO) 11.8 K/uL (4.3-11.0)
[2018-01-08 20:02] LABS: CALCIUM, SERUM 8.8 mg/dL (8.5-10.1); CARBON DIOXIDE 23 mmol/L (21-32); CHLORIDE 110 mmol/L (98-107); CREATININE 1.2 mg/dL (0.6-1.3); GLUCOSE 144 mg/dL (74-106); POTASSIUM 3.3 mmol/L (3.5-5.1); SODIUM SERUM 141 mmol/L (136-145); UREA NITROGEN, BLOOD 17 mg/dL (7-18)
[2018-01-08 20:29] LABS: TROPONIN I < 0.017 ng/mL (0.00-0.056)
[2018-01-08] MEDS ORDERED: IOHEXOL-350 100 ML VIAL IV ONE (20:59)
[2018-01-08] MEDS ORDERED: IV NS 0.9% 250 ML IV ONE (20:59)
[2018-01-08] MEDS ORDERED: CT SWABBABLE VALVE TRANS SET 1 EA INFUS.SET MC ONE (20:59)
[2018-01-08] MEDS ORDERED: POTASSIUM CHLORIDE 20 MEQ TAB.PRT.SR PO ONE ×2 (21:00→21:14)
[2018-01-08] MEDS ORDERED: ACETAMINOPHEN 325 MG TABLET PO PRN (23:30)
[2018-01-08] MEDS ORDERED: MAG HYDROX/AL HYDROX/SIMETH 30 ML UDC PO PRN (23:30)
[2018-01-08] MEDS ORDERED: HYDROCODONE/APAP 5/325MG 1 EACH TABLET PO PRN (23:30)
[2018-01-08] MEDS ORDERED: TEMAZEPAM 15 MG CAPSULE PO PRN (23:30)
[2018-01-08] MEDS ORDERED: ONDANSETRON HCL/PF 4 MG/2 ML VIAL IVP PRN (23:30)
[2018-01-09] VITALS: BP 149/90
[2018-01-09 04:00] VITALS: BP 135/65
[2018-01-09 07:19] LABS: BASOPHILS % (AUTO) 0.3 % (0.0-2.0); EOSINOPHILS # (AUTO) 0.1 /CMM (0.0-0.7); EOSINOPHILS % (AUTO) 1.4 % (0.0-6.0); HEMATOCRIT 26 % (33-45); HEMOGLOBIN 8.6 g/dL (11.5-14.8); LYMPHOCYTES # (AUTO) 1.5 /CMM (0.8-4.8); LYMPHOCYTES % (AUTO) 16.6 % (20.0-44.0); MEAN CORPUSCULAR HEMOGLOBIN 28 PG (26.0-33.0); MEAN CORPUSCULAR HGB CONC 33 g/dl (31.0-36.0); MEAN CORPUSCULAR VOLUME 85 fL (82-100); MONOCYTES # (AUTO) 0.4 /CMM (0.1-1.30); MONOCYTES % (AUTO) 4.7 % (2.0-12.0); PLATELET COUNT (AUTO) 663 /CMM (150-450); RDW COEFFICIENT OF VARIATION 16.5 (11.5-15.0); RED BLOOD CELL COUNT(AUTO) 3.06 MIL/uL (4.0-5.2); WHITE BLOOD COUNT (AUTO) 9.1 K/uL (4.3-11.0)
[2018-01-09 07:36] LABS: CALCIUM, SERUM 8.6 mg/dL (8.5-10.1); CARBON DIOXIDE 25 mmol/L (21-32); CHLORIDE 114 mmol/L (98-107); GLUCOSE 94 mg/dL (74-106); MAGNESIUM 1.4 mg/dL (1.8-2.4); PHOSPHORUS 2.7 mg/dL (2.5-4.9); POTASSIUM 4.3 mmol/L (3.5-5.1); SODIUM SERUM 145 mmol/L (136-145); UREA NITROGEN, BLOOD 13 mg/dL (7-18)
[2018-01-09 07:55] LABS: CHOLESTEROL 130 mg/dL (<200); HDL CHOLESTEROL 59 mg/dL (40-60); LDL 63 mg/dL (0-99); TRIGLYCERIDES 85 mg/dL (30-150)
[2018-01-09 08:00] VITALS: BP 126/61
[2018-01-09] MEDS: FUROSEMIDE 40 MG TABLET PO SCH (08:33)
[2018-01-09] MEDS: FOLIC ACID 1 MG TABLET PO SCH (08:33)
[2018-01-09] MEDS: PANTOPRAZOLE 40 MG TABLET.DR PO SCH (08:33)
[2018-01-09] MEDS: METOPROLOL SUCCINATE 50 MG TAB.SR.24H PO SCH (08:33)
[2018-01-09] MEDS: LEVOTHYROXINE SODIUM 50 MCG TABLET PO SCH (08:33)
[2018-01-09] MEDS: ASPIRIN 81 MG TAB.CHEW PO SCH (08:33)
[2018-01-09] MEDS: ENOXAPARIN SODIUM 30 MG/0.3 ML DISP.SYRIN SQ SCH (08:35)
[2018-01-09] MEDS ORDERED: ATORVASTATIN 10 MG TABLET PO SCH (09:00)
[2018-01-09 10:01] LABS: THYROID STIMULATING HORMONE 3.443 uIU/mL (0.358-3.74)
[2018-01-09] MEDS: Magnesium 1GM/D5W 100ML PREMIX 100 ML IV SCH ×2 (10:17→11:36)
[2018-01-09 12:00] VITALS: BP 113/55
[2018-01-09 16:00] VITALS: BP 100/53
[2018-01-09] MEDS: IV NS 0.9% 1,000 ML IV PRN (17:07)
[2018-01-09 20:00] VITALS: BP 124/55
[2018-01-10] VITALS: BP 110/51
[2018-01-10 04:00] VITALS: BP 115/60
[2018-01-10] MEDS: IV NS 0.9% 1,000 ML IV PRN (04:00)
[2018-01-10 07:22] LABS: BASOPHILS # (AUTO) 0.1 /CMM (0.0-0.2); BASOPHILS % (AUTO) 0.7 % (0.0-2.0); EOSINOPHILS # (AUTO) 0.3 /CMM (0.0-0.7); EOSINOPHILS % (AUTO) 3.9 % (0.0-6.0); HEMATOCRIT 24 % (33-45); HEMOGLOBIN 8.2 g/dL (11.5-14.8); LYMPHOCYTES # (AUTO) 1.4 /CMM (0.8-4.8); LYMPHOCYTES % (AUTO) 20.1 % (20.0-44.0); MEAN CORPUSCULAR HEMOGLOBIN 29 PG (26.0-33.0); MEAN CORPUSCULAR HGB CONC 34 g/dl (31.0-36.0); MEAN CORPUSCULAR VOLUME 85 fL (82-100); MONOCYTES # (AUTO) 0.4 /CMM (0.1-1.30); MONOCYTES % (AUTO) 5.2 % (2.0-12.0); NEUTROPHILS # (AUTO) 5.1 /CMM (1.8-8.9); NEUTROPHILS % (AUTO) 70.1 % (43.0-81.0); PLATELET COUNT (AUTO) 590 /CMM (150-450); RDW COEFFICIENT OF VARIATION 16.2 (11.5-15.0); RED BLOOD CELL COUNT(AUTO) 2.86 MIL/uL (4.0-5.2); WHITE BLOOD COUNT (AUTO) 7.2 K/uL (4.3-11.0)
[2018-01-10 07:35] LABS: CALCIUM, SERUM 8.3 mg/dL (8.5-10.1); CARBON DIOXIDE 24 mmol/L (21-32); CHLORIDE 113 mmol/L (98-107); GLUCOSE 90 mg/dL (74-106); MAGNESIUM 1.8 mg/dL (1.8-2.4); PHOSPHORUS 2.9 mg/dL (2.5-4.9); POTASSIUM 3.7 mmol/L (3.5-5.1); SODIUM SERUM 145 mmol/L (136-145); UREA NITROGEN, BLOOD 12 mg/dL (7-18)
[2018-01-10 08:00] VITALS: BP 137/59
[2018-01-10] MEDS: FUROSEMIDE 40 MG TABLET PO SCH (09:04)
[2018-01-10] MEDS: FOLIC ACID 1 MG TABLET PO SCH (09:04)
[2018-01-10] MEDS: PANTOPRAZOLE 40 MG TABLET.DR PO SCH (09:04)
[2018-01-10] MEDS: METOPROLOL SUCCINATE 50 MG TAB.SR.24H PO SCH (09:04)
[2018-01-10] MEDS: ASPIRIN 81 MG TAB.CHEW PO SCH (09:04)
[2018-01-10] MEDS: LOSARTAN POTASSIUM 50 MG TABLET PO SCH (09:05)
[2018-01-10] MEDS: LEVOTHYROXINE SODIUM 50 MCG TABLET PO SCH (09:05)
[2018-01-10] MEDS: ENOXAPARIN SODIUM 30 MG/0.3 ML DISP.SYRIN SQ SCH (09:06)
[2018-01-10 12:00] VITALS: BP 112/47
[2018-01-10] MEDS ORDERED: Z GUARD REMEDY 2 OZ OINT TP PRN (14:30)
[2018-01-10 16:00] VITALS: BP 121/64
[2018-01-10 20:15] VITALS: BP 144/66
[2018-01-10] MEDS: MAGNESIUM HYDROXIDE 30 ML UDC PO PRN (21:17)
[2018-01-10] MEDS: ATORVASTATIN 10 MG TABLET PO SCH (21:17)
[2018-01-11 05:02] VITALS: BP 140/75
[2018-01-11 08:00] VITALS: BP 141/96
[2018-01-11] MEDS: LEVOTHYROXINE SODIUM 50 MCG TABLET PO SCH (08:41)
[2018-01-11] MEDS: FOLIC ACID 1 MG TABLET PO SCH (08:41)
[2018-01-11] MEDS: LOSARTAN POTASSIUM 50 MG TABLET PO SCH ×2 (08:41→16:56)
[2018-01-11] MEDS: ASPIRIN 81 MG TAB.CHEW PO SCH (08:41)
[2018-01-11] MEDS: PANTOPRAZOLE 40 MG TABLET.DR PO SCH (08:41)
[2018-01-11] MEDS: FUROSEMIDE 40 MG TABLET PO SCH (08:41)
[2018-01-11] MEDS: METOPROLOL SUCCINATE 50 MG TAB.SR.24H PO SCH (08:43)
[2018-01-11] MEDS: ENOXAPARIN SODIUM 30 MG/0.3 ML DISP.SYRIN SQ SCH (08:46)
[2018-01-11 16:00] VITALS: BP 129/66
[2018-01-11] MEDS ORDERED: ERGOCALCIFEROL (VITAMIN D 2) 50,000 UNIT CAPSULE PO SCH (17:00)
[2018-01-11 20:00] VITALS: BP 104/53
[2018-01-11] MEDS: ATORVASTATIN 10 MG TABLET PO SCH (21:18)
[2018-01-11] MEDS: MAGNESIUM HYDROXIDE 30 ML UDC PO PRN (21:24)
[2018-01-12 04:00] VITALS: BP 136/70
[2018-01-12 06:53] LABS: BASOPHILS % (AUTO) 0.1 % (0.0-2.0); EOSINOPHILS # (AUTO) 0.2 /CMM (0.0-0.7); EOSINOPHILS % (AUTO) 2.5 % (0.0-6.0); HEMATOCRIT 27 % (33-45); HEMOGLOBIN 9.1 g/dL (11.5-14.8); LYMPHOCYTES # (AUTO) 1.2 /CMM (0.8-4.8); LYMPHOCYTES % (AUTO) 15.6 % (20.0-44.0); MEAN CORPUSCULAR HEMOGLOBIN 29 PG (26.0-33.0); MEAN CORPUSCULAR HGB CONC 34 g/dl (31.0-36.0); MEAN CORPUSCULAR VOLUME 85 fL (82-100); MONOCYTES # (AUTO) 0.4 /CMM (0.1-1.30); MONOCYTES % (AUTO) 5.5 % (2.0-12.0); NEUTROPHILS % (AUTO) 76.3 % (43.0-81.0); PLATELET COUNT (AUTO) 530 /CMM (150-450); RDW COEFFICIENT OF VARIATION 15.6 (11.5-15.0); RED BLOOD CELL COUNT(AUTO) 3.12 MIL/uL (4.0-5.2); WHITE BLOOD COUNT (AUTO) 7.8 K/uL (4.3-11.0)
[2018-01-12] MEDS: PANTOPRAZOLE 40 MG TABLET.DR PO SCH (07:10)
[2018-01-12] MEDS: LEVOTHYROXINE SODIUM 50 MCG TABLET PO SCH (07:10)
[2018-01-12 07:43] LABS: CALCIUM, SERUM 9.2 mg/dL (8.5-10.1); CARBON DIOXIDE 27 mmol/L (21-32); CHLORIDE 109 mmol/L (98-107); CREATININE 0.9 mg/dL (0.6-1.3); GLUCOSE 101 mg/dL (74-106); POTASSIUM 3.5 mmol/L (3.5-5.1); SODIUM SERUM 144 mmol/L (136-145); UREA NITROGEN, BLOOD 15 mg/dL (7-18)
[2018-01-12 08:00] VITALS: BP 137/70
[2018-01-12] MEDS: METOPROLOL SUCCINATE 50 MG TAB.SR.24H PO SCH (08:12)
[2018-01-12] MEDS: LOSARTAN POTASSIUM 50 MG TABLET PO SCH ×2 (08:12→16:07)
[2018-01-12] MEDS: ASPIRIN 81 MG TAB.CHEW PO SCH (08:12)
[2018-01-12] MEDS: FOLIC ACID 1 MG TABLET PO SCH (08:13)
[2018-01-12] MEDS: FUROSEMIDE 40 MG TABLET PO SCH (08:13)
[2018-01-12] MEDS: ENOXAPARIN SODIUM 30 MG/0.3 ML DISP.SYRIN SQ SCH (08:14)
[2018-01-12] MEDS ORDERED: ERGOCALCIFEROL (VITAMIN D 2) 50,000 UNIT CAPSULE PO SCH (09:00)
[2018-01-12 12:00] VITALS: BP 124/64
[2018-01-12 16:00] VITALS: BP 108/60
[2018-01-12 16:06] VITALS: BP 108/60
[2018-01-12 20:00] VITALS: BP 142/70
[2018-01-12] MEDS: ATORVASTATIN 10 MG TABLET PO SCH (21:39)
[2018-01-13 06:00] VITALS: BP 125/72
[2018-01-13 07:36] LABS: BASOPHILS % (AUTO) 0.4 % (0.0-2.0); EOSINOPHILS # (AUTO) 0.2 /CMM (0.0-0.7); EOSINOPHILS % (AUTO) 2.6 % (0.0-6.0); HEMATOCRIT 26 % (33-45); HEMOGLOBIN 8.8 g/dL (11.5-14.8); LYMPHOCYTES # (AUTO) 1.5 /CMM (0.8-4.8); LYMPHOCYTES % (AUTO) 18.6 % (20.0-44.0); MEAN CORPUSCULAR HEMOGLOBIN 29 PG (26.0-33.0); MEAN CORPUSCULAR HGB CONC 34 g/dl (31.0-36.0); MEAN CORPUSCULAR VOLUME 85 fL (82-100); MONOCYTES # (AUTO) 0.4 /CMM (0.1-1.30); MONOCYTES % (AUTO) 5.2 % (2.0-12.0); NEUTROPHILS # (AUTO) 5.7 /CMM (1.8-8.9); NEUTROPHILS % (AUTO) 73.2 % (43.0-81.0); PLATELET COUNT (AUTO) 449 /CMM (150-450); RDW COEFFICIENT OF VARIATION 15.6 (11.5-15.0); RED BLOOD CELL COUNT(AUTO) 3.06 MIL/uL (4.0-5.2); WHITE BLOOD COUNT (AUTO) 7.8 K/uL (4.3-11.0)
[2018-01-13 07:38] LABS: CALCIUM, SERUM 8.7 mg/dL (8.5-10.1); CARBON DIOXIDE 27 mmol/L (21-32); CHLORIDE 108 mmol/L (98-107); CREATININE 0.9 mg/dL (0.6-1.3); GLUCOSE 89 mg/dL (74-106); MAGNESIUM 1.9 mg/dL (1.8-2.4); PHOSPHORUS 2.9 mg/dL (2.5-4.9); POTASSIUM 3.9 mmol/L (3.5-5.1); SODIUM SERUM 141 mmol/L (136-145); UREA NITROGEN, BLOOD 16 mg/dL (7-18)
[2018-01-13 08:00] VITALS: BP 141/70
[2018-01-13] MEDS: LEVOTHYROXINE SODIUM 50 MCG TABLET PO SCH (08:56)
[2018-01-13] MEDS: PANTOPRAZOLE 40 MG TABLET.DR PO SCH (08:56)
[2018-01-13] MEDS: ASPIRIN 81 MG TAB.CHEW PO SCH (08:57)
[2018-01-13] MEDS: FOLIC ACID 1 MG TABLET PO SCH (08:57)
[2018-01-13] MEDS: LOSARTAN POTASSIUM 50 MG TABLET PO SCH ×2 (08:57→17:15)
[2018-01-13] MEDS: METOPROLOL SUCCINATE 50 MG TAB.SR.24H PO SCH (08:58)
[2018-01-13] MEDS: FUROSEMIDE 40 MG TABLET PO SCH (08:58)
[2018-01-13] MEDS: ENOXAPARIN SODIUM 30 MG/0.3 ML DISP.SYRIN SQ SCH (09:00)
[2018-01-13 16:00] VITALS: BP 129/56
[2018-01-13] MEDS: ATORVASTATIN 10 MG TABLET PO SCH (22:12)
[2018-01-14 04:00] VITALS: BP 133/64
[2018-01-14 08:00] VITALS: BP_SYST 108; BP_SYST 133; BP_DIAS 64; BP_DIAS 72
[2018-01-14 08:10] LABS: BASOPHILS # (AUTO) 0.1 /CMM (0.0-0.2); BASOPHILS % (AUTO) 1.3 % (0.0-2.0); EOSINOPHILS # (AUTO) 0.2 /CMM (0.0-0.7); HEMATOCRIT 27 % (33-45); HEMOGLOBIN 9.1 g/dL (11.5-14.8); LYMPHOCYTES % (AUTO) 24.5 % (20.0-44.0); MEAN CORPUSCULAR HEMOGLOBIN 29 PG (26.0-33.0); MEAN CORPUSCULAR HGB CONC 34 g/dl (31.0-36.0); MEAN CORPUSCULAR VOLUME 85 fL (82-100); MONOCYTES # (AUTO) 0.4 /CMM (0.1-1.30); NEUTROPHILS # (AUTO) 5.5 /CMM (1.8-8.9); NEUTROPHILS % (AUTO) 67.2 % (43.0-81.0); PLATELET COUNT (AUTO) 486 /CMM (150-450); RDW COEFFICIENT OF VARIATION 15.2 (11.5-15.0); RED BLOOD CELL COUNT(AUTO) 3.16 MIL/uL (4.0-5.2); WHITE BLOOD COUNT (AUTO) 8.2 K/uL (4.3-11.0)
[2018-01-14] MEDS: PANTOPRAZOLE 40 MG TABLET.DR PO SCH (08:10)
[2018-01-14] MEDS: LOSARTAN POTASSIUM 50 MG TABLET PO SCH ×2 (08:10→17:54)
[2018-01-14] MEDS: LEVOTHYROXINE SODIUM 50 MCG TABLET PO SCH (08:10)
[2018-01-14] MEDS: ASPIRIN 81 MG TAB.CHEW PO SCH (08:10)
[2018-01-14] MEDS: FOLIC ACID 1 MG TABLET PO SCH (08:10)
[2018-01-14] MEDS: ENOXAPARIN SODIUM 30 MG/0.3 ML DISP.SYRIN SQ SCH (08:17)
[2018-01-14] MEDS: METOPROLOL SUCCINATE 50 MG TAB.SR.24H PO SCH (08:21)
[2018-01-14 08:22] LABS: CALCIUM, SERUM 8.8 mg/dL (8.5-10.1); CARBON DIOXIDE 24 mmol/L (21-32); CHLORIDE 107 mmol/L (98-107); CREATININE 0.9 mg/dL (0.6-1.3); GLUCOSE 91 mg/dL (74-106); MAGNESIUM 1.9 mg/dL (1.8-2.4); PHOSPHORUS 3.1 mg/dL (2.5-4.9); POTASSIUM 3.5 mmol/L (3.5-5.1); SODIUM SERUM 141 mmol/L (136-145); UREA NITROGEN, BLOOD 20 mg/dL (7-18)
[2018-01-14 09:00] VITALS: BP 108/72
[2018-01-14 16:00] VITALS: BP_SYST 122; BP_SYST 137; BP_DIAS 69; BP_DIAS 75
[2018-01-14 17:54] VITALS: BP 122/75
== END 2018-01-14 19:11 | DRG 291 ==
LOC: ER 18:52 → MEDSG1 22:15 → TELE1 23:50 → MEDSG1 01-10 10:06
PROVIDERS: ADMIT Nurse Practitioner Acute Care; ATTEND Nurse Practitioner Acute Care
DX: I11.0 Hypertensive heart disease with heart failure (principal); G93.41 Metabolic encephalopathy; L89.159 Pressure ulcer of sacral region, unspecified stage; J90 Pleural effusion, not elsewhere classified; I95.9 Hypotension, unspecified; K66.8 Other specified disorders of peritoneum; T81.30XA Disruption of wound, unspecified, initial encounter; D63.8 Anemia in other chronic diseases classified elsewhere; J98.11 Atelectasis; I50.33 Acute on chronic diastolic (congestive) heart failure; E86.0 Dehydration; M06.9 Rheumatoid arthritis, unspecified; Z95.1 Presence of aortocoronary bypass graft; E78.5 Hyperlipidemia, unspecified; M19.90 Unspecified osteoarthritis, unspecified site; E87.6 Hypokalemia; I25.10 Atherosclerotic heart disease of native coronary artery without angina pectoris; Z96.653 Presence of artificial knee joint, bilateral; Z96.643 Presence of artificial hip joint, bilateral; Z87.11 Personal history of peptic ulcer disease; Z79.82 Long term (current) use of aspirin; Z79.899 Other long term (current) drug therapy; R53.81 Other malaise; L98.9 Disorder of the skin and subcutaneous tissue, unspecified; Y83.9 Surgical procedure, unspecified as the cause of abnormal reaction of the patient, or of later complication, without mention of misadventure at the time of the procedure; Y92.009 Unspecified place in unspecified non-institutional (private) residence as the place of occurrence of the external cause; D47.3 Essential (hemorrhagic) thrombocythemia; E55.9 Vitamin D deficiency, unspecified; I35.1 Nonrheumatic aortic (valve) insufficiency; K44.9 Diaphragmatic hernia without obstruction or gangrene
CPT/HCPCS: 36415; 71045-TC; 80048-TC; 80061-TC; 82306; 82728-TC; 83540-TC; 83735-TC; 84100-TC; 84439-TC; 84443-TC; 84484-TC; 85025-TC; 87081-TC; 93307-TC; 97116-TC; 97530-TC; A4606; A6407; J1650; J2405; J3475; J7030; J7040; J7050; Q9967; Z7610

== ENCOUNTER 2018-06-18 18:12 | Emergency (ER) | payer MEDICARE, OTHER ==
[~2018-06-18] VITALS: Ht 152.4 cm; Wt 50.5 kg
--- NOTE | 2018-06-18 18:16 | NUR ---
dr thomas at bedside for eval.
--- NOTE | 2018-06-18 18:23 | NUR ---
per ems. pt's son endorses active gi bleed and ask them not to given pt aspirin. dr thomas made aware.
[2018-06-18] MEDS ORDERED: ASPIRIN 325 MG TABLET PO ONE (18:30)
[2018-06-18] MEDS ORDERED: NITROGLYCERIN 0.4 MG/TAB BOTTLE SL ONE (18:30)
--- NOTE | 2018-06-18 18:35 | NUR ---
labor mediator at bedside for blood draw.
[2018-06-18 18:43] LABS: BASOPHILS # (AUTO) 0.1 /CMM (0.0-0.2); BASOPHILS % (AUTO) 0.5 % (0.0-2.0); EOSINOPHILS % (AUTO) 0.3 % (0.0-6.0); HEMATOCRIT 38 % (33-45); HEMOGLOBIN 12.5 g/dL (11.5-14.8); LYMPHOCYTES % (AUTO) 5.4 % (20.0-44.0); MEAN CORPUSCULAR HEMOGLOBIN 28 PG (26.0-33.0); MEAN CORPUSCULAR HGB CONC 33 g/dl (31.0-36.0); MEAN CORPUSCULAR VOLUME 82 fL (82-100); MONOCYTES % (AUTO) 0.2 % (2.0-12.0); NEUTROPHILS # (AUTO) 17.5 /CMM (1.8-8.9); NEUTROPHILS % (AUTO) 93.6 % (43.0-81.0); PLATELET COUNT (AUTO) 396 /CMM (150-450); RDW COEFFICIENT OF VARIATION 16.7 (11.5-15.0); RED BLOOD CELL COUNT(AUTO) 4.55 MIL/uL (4.0-5.2); WHITE BLOOD COUNT (AUTO) 18.7 K/uL (4.3-11.0)
[2018-06-18] MEDS ORDERED: NITROGLYCERIN 0.4 MG/TAB BOTTLE ONE (18:49)
[2018-06-18 18:55] LABS: INR 0.99 (0.85-1.15)
--- NOTE | 2018-06-18 18:55 | NUR ---
family at bedside. states no active bleeding as per ems. endorses hx of ulcers.
[2018-06-18 18:58] LABS: CALCIUM, SERUM 10.1 mg/dL (8.5-10.1); CARBON DIOXIDE 25 mmol/L (21-32); CHLORIDE 102 mmol/L (98-107); CREATININE 1.3 mg/dL (0.6-1.3); GLUCOSE 175 mg/dL (74-106); POTASSIUM 4.4 mmol/L (3.5-5.1); SODIUM SERUM 135 mmol/L (136-145); UREA NITROGEN, BLOOD 48 mg/dL (7-18)
[2018-06-18 18:59] LABS: TROPONIN I < 0.017 ng/mL (0.00-0.056)
--- NOTE | 2018-06-18 19:07 | NUR ---
pt refusing straight catheter for urine collection. dr thomas made aware.
--- NOTE | 2018-06-18 19:15 | NUR ---
to to radiology for abdominal ct scan via [place].
[2018-06-18 19:18] LABS: ALANINE AMINOTRANSFERASE 58 U/L (12-78); ALBUMIN 3.1 g/dL (3.4-5.0); ALKALINE PHOSPHATASE 156 U/L (46-116); ASPARTATE AMINOTRANSFERASE 93 U/L (15-37); B-TYPE NATRIURETIC PEPTIDE 1328 PG/ML (0-125); BILIRUBIN,DIRECT 0.7 mg/dL (0.0-0.2); BILIRUBIN,TOTAL 1.4 mg/dL (0.2-1.0); TOTAL PROTEIN, SERUM 7.3 g/dL (6.4-8.2)
[2018-06-18] MEDS ORDERED: IV NS 0.9% 1,000 ML BAG IV ONE (19:30)
[2018-06-18] MEDS ORDERED: PIPERACILLIN /TAZOBACTAM 3.375 G in IV D5W 50 ML IV ONE (19:30)
[2018-06-18] MEDS ORDERED: VANCOMYCIN 1 GM in IV D5W 250 ML IV ONE (19:30)
--- NOTE | 2018-06-18 20:02 | NUR ---
CALLED NURSING RECEIVER DISPATCHER REQUESTED TELE BED FOR THIS PATIENT
[2018-06-18] MEDS ORDERED: IOHEXOL-300 100 ML VIAL IV ONE ×2 (20:24→20:28)
--- NOTE | 2018-06-18 20:31 | NUR ---
u/s tech at bedside for gall bladder ultrasound.
--- NOTE | 2018-06-18 20:50 | NUR ---
pt to radiology for abdominal ct scan via [facility].
--- NOTE | 2018-06-18 20:52 | NUR ---
NURSING HEALTH SERVICE COORDINATOR ADMIT PATIENT TO ROOM 327-1 TELE
[2018-06-18] MEDS ORDERED: CT SWABBABLE VALVE TRANS SET 1 EA INFUS.SET MC ONE (21:04)
[2018-06-18] MEDS ORDERED: IV NS 0.9% 250 ML IV ONE (21:04)
[2018-06-18] MEDS ORDERED: IOHEXOL-350 100 ML VIAL IV ONE (21:04)
--- NOTE | 2018-06-18 22:10 | NUR ---
CALLED [facility] AND SPOKE TO ABIGAIL. FAXED OVER [employer] TO [phone]. SAID HE WOULD PRESENT CASE AND CALL US BACK
[2018-06-18 22:28] LABS: APPEARANCE,URINE CLEAR (CLEAR); BILIRUBIN,URINE NEGATIVE (NEGATIVE); BLOOD, URINE NEGATIVE Ery/uL (NEGATIVE); COLOR,URINE YELLOW (YELLOW); KETONES,URINE NEGATIVE (NEGATIVE); LEUKOCYTE ESTERASE ,URINE 3+ (NEGATIVE); NITRITE, URINE NEGATIVE (NEGATIVE); PH,URINE 5.5 (5.0-8.0); PROTEIN,URINE NEGATIVE (NEGATIVE); UGLUCOSE NEGATIVE (NEGATIVE); UROBILINOGEN,URINE 0.2 EU/dL (0.2)
[2018-06-18 22:34] LABS: BACTERIA,URINE Moderate /HPF (None Seen); RBC,URINE 0-2 /HPF (0-2); SQUAMOUS EPITHELIAL CELL,UR Few /HPF (None Seen); WBC,URINE 21-50 /HPF (0-3)
--- NOTE | 2018-06-18 23:21 | NUR ---
PT ENDORSED TO ONCOLOGY SOCIAL WORKER MICHELLE BOSTON FOR [place].
--- NOTE | 2018-06-18 23:33 | NUR ---
VITAL SIGNS UPDATED.
--- NOTE | 2018-06-18 23:41 | NUR ---
DANDRE (SON) CELL PHONE #[phone]
[2018-06-19] MEDS ORDERED: IV NS 0.9% 1,000 ML BAG IV ONE
--- NOTE | 2018-06-19 00:32 | NUR ---
CALLED [facility] AND SPOKE TO PEDRO PABLO AND WAS TOLD THAT THEY HAVE NO BEDS AVAILABLE.
[2018-06-19] MEDS ORDERED: ONDANSETRON HCL/PF 4 MG/2 ML VIAL IV ONE (01:30)
[2018-06-19] MEDS ORDERED: MORPHINE SULFATE INJ 2 MG/ML DISP.SYRIN IV ONE (01:30)
--- NOTE | 2018-06-19 02:24 | NUR ---
PT ACCEPTED BY DR JADE AT [facility] BY DR JADE. # FOR REPORT [phone]
--- NOTE | 2018-06-19 02:28 | NUR ---
[facility] ETA 30 MIN
[2018-06-19 03:22] VITALS: BP 110/61
[2018-06-19] MEDS ORDERED: MORPHINE SULFATE INJ 2 MG/ML DISP.SYRIN ONE (03:22)
[2018-06-19] MEDS ORDERED: ONDANSETRON HCL/PF 4 MG/2 ML VIAL ONE (03:22)
--- NOTE | 2018-06-19 03:53 | NUR ---
report given to emtr for transport
== END 2018-06-19 04:16 | disposition short-term general hospital (02) ==
LOC: ER 18:13
DX: J18.9 Pneumonia, unspecified organism (principal); J81.1 Chronic pulmonary edema; K80.10 Calculus of gallbladder with chronic cholecystitis without obstruction; K80.40 Calculus of bile duct with cholecystitis, unspecified, without obstruction; I10 Essential (primary) hypertension; M19.90 Unspecified osteoarthritis, unspecified site; D69.6 Thrombocytopenia, unspecified; E40 Kwashiorkor; E78.5 Hyperlipidemia, unspecified; I25.10 Atherosclerotic heart disease of native coronary artery without angina pectoris; D63.8 Anemia in other chronic diseases classified elsewhere; Z98.890 Other specified postprocedural states; Z79.82 Long term (current) use of aspirin; Z79.899 Other long term (current) drug therapy
CPT/HCPCS: 36415 ×2; 71045; 74174; 74176; 76705; 80048; 80076; 81001; 83605 ×3; 83690; 83880; 84484; 85025; 85730; 87040 ×2; 87081; 87086; 93005 ×2; 96365; 96375; 99291; A4606; J2270; J2405; J2543; J3370; J7030; J7050; J7060 ×2; Q9967 ×3; 81000-TC; Z7610

== ENCOUNTER 2019-02-16 21:10 | Inpatient (IN) | payer MEDICARE, OTHER ==
[~2019-02-16] VITALS: Ht 154.9 cm; Wt 47.2 kg
[2019-02-16] MEDS ORDERED: ONDANSETRON HCL/PF 4 MG/2 ML VIAL ONE ×2 (21:18→22:59)
[2019-02-16] MEDS ORDERED: ONDANSETRON HCL/PF 4 MG/2 ML VIAL IVP ONE (21:30)
[2019-02-16] MEDS ORDERED: IV NS 0.9% 500 ML BAG IV ONE (21:30)
[2019-02-16 21:38] LABS: BASOPHILS % (AUTO) 0.2 % (0.0-2.0); HEMATOCRIT 40 % (33-45); HEMOGLOBIN 13.2 g/dL (11.5-14.8); LYMPHOCYTES # (AUTO) 1.4 /CMM (0.8-4.8); LYMPHOCYTES % (AUTO) 8.2 % (20.0-44.0); MEAN CORPUSCULAR HGB CONC 33 g/dl (31.0-36.0); MEAN CORPUSCULAR VOLUME 88 fL (82-100); MONOCYTES # (AUTO) 0.3 /CMM (0.1-1.30); MONOCYTES % (AUTO) 1.9 % (2.0-12.0); NEUTROPHILS # (AUTO) 14.9 /CMM (1.8-8.9); NEUTROPHILS % (AUTO) 89.7 % (43.0-81.0); PLATELET COUNT (AUTO) 407 /CMM (150-450); RED BLOOD CELL COUNT(AUTO) 4.53 MIL/uL (4.0-5.2); WHITE BLOOD COUNT (AUTO) 16.7 K/uL (4.3-11.0)
[2019-02-16 21:39] LABS: CALCIUM, SERUM 10.8 mg/dL (8.5-10.1); CARBON DIOXIDE 23 mmol/L (21-32); CHLORIDE 101 mmol/L (98-107); CREATININE 1.5 mg/dL (0.6-1.3); GLUCOSE 168 mg/dL (74-106); POTASSIUM 4.9 mmol/L (3.5-5.1); SODIUM SERUM 136 mmol/L (136-145); UREA NITROGEN, BLOOD 50 mg/dL (7-18)
[2019-02-16 21:45] LABS: ALANINE AMINOTRANSFERASE 20 U/L (12-78); ALBUMIN 3.6 g/dL (3.4-5.0); ALKALINE PHOSPHATASE 186 U/L (46-116); ASPARTATE AMINOTRANSFERASE 20 U/L (15-37); BILIRUBIN,DIRECT 0.2 mg/dL (0.0-0.2); BILIRUBIN,TOTAL 0.6 mg/dL (0.2-1.0); LIPASE 75 U/L (73-393); TOTAL PROTEIN, SERUM 8.2 g/dL (6.4-8.2)
[2019-02-16 22:49] LABS: APPEARANCE,URINE Clear (CLEAR); BILIRUBIN,URINE Negative (NEGATIVE); BLOOD, URINE Negative Ery/uL (NEGATIVE); COLOR,URINE Yellow (YELLOW); KETONES,URINE Negative (NEGATIVE); LEUKOCYTE ESTERASE ,URINE Trace (NEGATIVE); NITRITE, URINE Negative (NEGATIVE); PH,URINE 5.5 (5.0-8.0); PROTEIN,URINE Negative (NEGATIVE); UGLUCOSE Negative (NEGATIVE); UROBILINOGEN,URINE 0.2 EU/dL (0.2)
[2019-02-16] MEDS ORDERED: ONDANSETRON HCL/PF 4 MG/2 ML VIAL IV ONE (23:00)
[2019-02-16 23:12] LABS: BACTERIA,URINE None seen /HPF (None Seen); RBC,URINE 0-2 /HPF (0-2); SQUAMOUS EPITHELIAL CELL,UR Few /HPF (None Seen)
--- NOTE | 2019-02-16 23:13 | NUR ---
CALLED [facility] FOR A CT IMAGE READ
[2019-02-16] MEDS ORDERED: PIPERACILLIN /TAZOBACTAM 3.375 G VIAL IV ONE (23:45)
--- NOTE | 2019-02-16 23:49 | NUR ---
[facility] WAS CALLED. BABY COUNSELOR WAS PAGED
--- NOTE | 2019-02-16 23:53 | NUR ---
NURSING SUP CALLED FOR BED. AWAITING CALL BACK
[2019-02-17] MEDS ORDERED: IV NS 0.9% 1,000 ML BAG IV ONE
[2019-02-17] MEDS ORDERED: PIPERACILLIN /TAZOBACTAM 3.375 G in IV D5W 50 ML IV ONE ×2
--- NOTE | 2019-02-17 00:14 | NUR ---
FAMILY REFUSING NG TUBE INSTERTION AT THIS TIME. AWARE.
--- NOTE | 2019-02-17 00:26 | NUR ---
MS BED GIVEN 119-1
[2019-02-17] MEDS ORDERED: MAGNESIUM HYDROXIDE 30 ML UDC PO PRN (00:30)
[2019-02-17] MEDS ORDERED: Z GUARD REMEDY 2 OZ OINT TP PRN (00:30)
[2019-02-17] MEDS ORDERED: MORPHINE SULFATE INJ 2 MG/ML DISP.SYRIN IV PRN (00:30)
[2019-02-17] MEDS ORDERED: ONDANSETRON HCL/PF 4 MG/2 ML VIAL IVP PRN (00:30)
[2019-02-17] MEDS ORDERED: MAG HYDROX/AL HYDROX/SIMETH 30 ML UDC PO PRN (00:30)
[2019-02-17] MEDS: IV NS 0.9% 1,000 ML IV PRN ×2 (01:00→20:18)
--- NOTE | 2019-02-17 01:30 | NUR ---
RN INITIAL ADMISSION NOTES RECEIVED PATIENT FROM ER VIA RACHEL, FAMILY MEMBERS AT BEDSIDE. BREATHING EVEN AND NONLABORED, TOLERATING ROOM AIR WELL. SKIN ISSUES PHOTOGRAPHED AND DOCUMENTED PER PROTOCOL. NGT TO BE INSERTED. PATIENT A/O X4 IRANIAN SPEAKING, IRANIAN SPEAKING STAFF AT BEDSIDE TO AID IN TRANSLATION. PLAN OF CARE DISCUSSED WITH THE PATIENT AND FAMILY MEMBERS, ALL VERBALIZING UNDERSTANDING REGARDING THE PLAN OF CARE. RAC #20G PATENT AND INTACT, IVF INITIATED ORDERED. CALL LIGHT WITHIN EASY REACH, BED IN LOWEST AND LOCKED POSITION. WILL CONTINUE TO CLOSELY MONITOR
[2019-02-17] MEDS ORDERED: LIDOCAINE 2% JEL UROJET 10 ML MM ONE ×3 (02:30→03:30)
--- NOTE | 2019-02-17 02:30 | NUR ---
RN NOTES NGT INSERTION ATTEMPTED BY RN X2, UNSUCCESSFUL. ICU CHARGE NURSE CALLED TO BEDSIDE FOR ASSISTANCE. CALLED SANJIV NAM WASTE/MATERIALS EXCHANGE SPECIALIST , OBTAINED ORDER FOR UROJET TO HELP WITH NGT INSERTION SINCE PATIENT IS EXPERIENCING DISCOMFORT DURING ATTEMPTS. LEFT NARE NGT PLACED WITH USE OF UROJET, PLACEMENT VERIFIED BY AUSCULTATION WITH 2 RNs, NOTED WITH FECAL SMELLING, BROWN COLORED OUTPUT.
[2019-02-17] MEDS ORDERED: PIPERACILLIN /TAZOBACTAM 2.25 G in IV D5W 50 ML IV SCH (06:00)
--- NOTE | 2019-02-17 07:00 | NUR ---
RN CLOSING NOTES PATIENT RESTING COMFORTABLY IN BED, LEFT NARE NGT REMAINS PATENT AND INTACT, CONTINUES ON LOW INTERMITTENT SUCTION, NOTED WITH BROWN COLORED, FECAL MATTER OUTPUT. WILL ENDORSE THE PATIENT TO THE AM SHIFT NURSE FOR CONTINUITY OF CARE
[2019-02-17 07:01] LABS: BASOPHILS % (AUTO) 0.1 % (0.0-2.0); HEMATOCRIT 35 % (33-45); HEMOGLOBIN 11.5 g/dL (11.5-14.8); LYMPHOCYTES # (AUTO) 1.5 /CMM (0.8-4.8); LYMPHOCYTES % (AUTO) 11.6 % (20.0-44.0); MEAN CORPUSCULAR HGB CONC 33 g/dl (31.0-36.0); MEAN CORPUSCULAR VOLUME 87 fL (82-100); MONOCYTES # (AUTO) 0.3 /CMM (0.1-1.30); MONOCYTES % (AUTO) 2.6 % (2.0-12.0); NEUTROPHILS # (AUTO) 11.2 /CMM (1.8-8.9); NEUTROPHILS % (AUTO) 85.7 % (43.0-81.0); PLATELET COUNT (AUTO) 368 /CMM (150-450); WHITE BLOOD COUNT (AUTO) 13.1 K/uL (4.3-11.0)
[2019-02-17 07:32] LABS: ALANINE AMINOTRANSFERASE 22 U/L (12-78); ALBUMIN 2.9 g/dL (3.4-5.0); ALKALINE PHOSPHATASE 155 U/L (46-116); ASPARTATE AMINOTRANSFERASE 20 U/L (15-37); BILIRUBIN,TOTAL 0.8 mg/dL (0.2-1.0); CALCIUM, SERUM 9.6 mg/dL (8.5-10.1); CARBON DIOXIDE 18 mmol/L (21-32); CHLORIDE 108 mmol/L (98-107); CREATININE 1.4 mg/dL (0.6-1.3); GLUCOSE 137 mg/dL (74-106); POTASSIUM 4.5 mmol/L (3.5-5.1); SODIUM SERUM 140 mmol/L (136-145); TOTAL PROTEIN, SERUM 6.7 g/dL (6.4-8.2); UREA NITROGEN, BLOOD 49 mg/dL (7-18)
[2019-02-17 07:39] LABS: CHOLESTEROL 174 mg/dL (<200); HDL CHOLESTEROL 43 mg/dL (40-60); LDL 109 mg/dL (0-99); THYROID STIMULATING HORMONE 1.832 uIU/mL (0.358-3.74); TRIGLYCERIDES 169 mg/dL (30-150)
--- NOTE | 2019-02-17 07:40 | NUR ---
RN NOTES RECEIVED PT ON BED, A/Ox3, UZBEK SPEAKING ,ON RA , NO SOB NOTED, R AC IV SITE CLEAN, DRY AND INTACT, NPO ,NGT TO LIS DRAINING BROWNISH GASTRIC CONTENT. SR UP x3, CALL LIGHT WITHIN EASY REACH, BED LOCKED AND IN LOWEST POSITION, CONTINUE TO MONITOR. Addendum: 02/17/19 at 0744 by TOBIN MONTILLA RN CORRECTION ABOVE CHARTING TIME IS 0700
[2019-02-17 08:00] VITALS: BP 123/80
[2019-02-17] MEDS: LEVOTHYROXINE SODIUM 50 MCG TABLET PO SCH (09:12)
[2019-02-17] MEDS: METOPROLOL SUCCINATE 50 MG TAB.SR.24H PO SCH (09:13)
[2019-02-17] MEDS: PIPERACILLIN /TAZOBACTAM 3.375 G in IV D5W 100 ML IV SCH ×2 (09:15→20:18)
--- NOTE | 2019-02-17 12:00 | NUR ---
RN NOTES PT STABLE, SUPPORTIVE FAMILY AT THE BEDSIDE, NGT TO LIS , VSS STABLE , CONTINUE TO MONITOR
[2019-02-17 16:00] VITALS: BP_SYST 122; BP_SYST 123; BP_DIAS 80; BP_DIAS 81
--- NOTE | 2019-02-17 18:29 | NUR ---
RN NOTES NO SIGNIFICANT CHANGES NOTED ON THIS SHIFT, SR UP x3, CALL LIGHT WITHIN EASY REACH, WILL ENDORSE TO WINDOW GLAZIER NURSE FOR CONTINUITY OF CARE.
[2019-02-17 20:00] VITALS: BP 132/62
[2019-02-18 07:12] LABS: BASOPHILS % (AUTO) 0.4 % (0.0-2.0); EOSINOPHILS % (AUTO) 0.7 % (0.0-6.0); HEMATOCRIT 36 % (33-45); HEMOGLOBIN 11.9 g/dL (11.5-14.8); LYMPHOCYTES # (AUTO) 1.7 /CMM (0.8-4.8); MEAN CORPUSCULAR HGB CONC 33 g/dl (31.0-36.0); MEAN CORPUSCULAR VOLUME 87 fL (82-100); MONOCYTES # (AUTO) 0.4 /CMM (0.1-1.30); MONOCYTES % (AUTO) 5.1 % (2.0-12.0); NEUTROPHILS % (AUTO) 72.8 % (43.0-81.0); PLATELET COUNT (AUTO) 330 /CMM (150-450); RED BLOOD CELL COUNT(AUTO) 4.09 MIL/uL (4.0-5.2); WHITE BLOOD COUNT (AUTO) 8.3 K/uL (4.3-11.0)
[2019-02-18 07:34] LABS: CALCIUM, SERUM 9.5 mg/dL (8.5-10.1); CARBON DIOXIDE 23 mmol/L (21-32); CHLORIDE 112 mmol/L (98-107); CREATININE 1.5 mg/dL (0.6-1.3); GLUCOSE 100 mg/dL (74-106); MAGNESIUM 1.9 mg/dL (1.8-2.4); PHOSPHORUS 3.5 mg/dL (2.5-4.9); POTASSIUM 3.8 mmol/L (3.5-5.1); SODIUM SERUM 146 mmol/L (136-145); UREA NITROGEN, BLOOD 41 mg/dL (7-18)
[2019-02-18 08:00] VITALS: BP_SYST 122; BP_SYST 127; BP_DIAS 65; BP_DIAS 66
[2019-02-18] MEDS: PIPERACILLIN /TAZOBACTAM 3.375 G in IV D5W 100 ML IV SCH ×2 (09:14→20:36)
[2019-02-18] MEDS: LEVOTHYROXINE SODIUM 50 MCG TABLET PO SCH (09:14)
[2019-02-18] MEDS: METOPROLOL SUCCINATE 50 MG TAB.SR.24H PO SCH (09:14)
--- NOTE | 2019-02-18 10:00 | NUR ---
WOUND CARE CONSULT WOUND CARE RECEIVED CONSULT FOR SACRAL AND HEEL REDNESS. WOUND CARE WILL DEFER CONSULT TO PLASTIC SURGICAL TEAM WHO ARE CURRENTLY FOLLOWING THIS PATIENT. GENERAL SURGERY ALSO FOLLOWING FOR ABDOMINAL PAIN. PATIENT WITH HENRY AT 19, WILL SEE PRN.
--- NOTE | 2019-02-18 12:57 | NUR ---
RN NOTE: SPOKE WITH DR. OH AND RECEIVED ORDERS TO DC NGT, GIVE FLEET ENEMA Q3HR X 3 TIMES AND GIVE DULCOLAX 5 MG 3TABS PO X1. PER MD, CHECK THE PATIENT'S STOOL FOR ANY PRESENCE OF STENT. ORDER, NOTED AND CARRIED OUT. DAUGHTER MADE AWARE.
[2019-02-18] MEDS ORDERED: NA PHOS,M-B/NA PHOS,DI-BA 1 EA ENEMA RC SCH (13:00)
[2019-02-18] MEDS ORDERED: BISACODYL (5 MG) 5 MG TABLET.DR PO ONE ×2 (13:00→16:30)
[2019-02-18] MEDS ORDERED: NA PHOS,M-B/NA PHOS,DI-BA 1 EA ENEMA RC ONE (15:00)
[2019-02-18 16:00] VITALS: BP_SYST 116; BP_SYST 156; BP_DIAS 63; BP_DIAS 73
[2019-02-18] MEDS: NA PHOS,M-B/NA PHOS,DI-BA 1 EA ENEMA RC SCH ×2 (17:43→21:50)
[2019-02-18] MEDS: Potassium Chloride 20 MEQ in IV D5/0.45 NACL 1,000 ML IV PRN (18:26)
[2019-02-18 20:00] VITALS: BP 168/83
[2019-02-18] MEDS: LOSARTAN POTASSIUM 50 MG TABLET PO SCH (21:50)
[2019-02-19 00:45] VITALS: BP 146/88
[2019-02-19] MEDS: Potassium Chloride 20 MEQ in IV D5/0.45 NACL 1,000 ML IV PRN ×3 (03:09→21:30)
[2019-02-19 04:00] VITALS: BP 172/75
[2019-02-19 05:14] VITALS: BP 94/66
[2019-02-19 06:58] LABS: CALCIUM, SERUM 9.3 mg/dL (8.5-10.1); CARBON DIOXIDE 22 mmol/L (21-32); CHLORIDE 111 mmol/L (98-107); CREATININE 1.2 mg/dL (0.6-1.3); GLUCOSE 122 mg/dL (74-106); POTASSIUM 3.6 mmol/L (3.5-5.1); SODIUM SERUM 146 mmol/L (136-145); UREA NITROGEN, BLOOD 26 mg/dL (7-18)
[2019-02-19 07:05] LABS: BASOPHILS % (AUTO) 0.2 % (0.0-2.0); EOSINOPHILS % (AUTO) 1.1 % (0.0-6.0); HEMATOCRIT 34 % (33-45); HEMOGLOBIN 11.4 g/dL (11.5-14.8); LYMPHOCYTES # (AUTO) 2.2 /CMM (0.8-4.8); LYMPHOCYTES % (AUTO) 24.2 % (20.0-44.0); MEAN CORPUSCULAR HGB CONC 33 g/dl (31.0-36.0); MEAN CORPUSCULAR VOLUME 88 fL (82-100); MONOCYTES # (AUTO) 0.5 /CMM (0.1-1.30); MONOCYTES % (AUTO) 5.8 % (2.0-12.0); NEUTROPHILS # (AUTO) 6.3 /CMM (1.8-8.9); NEUTROPHILS % (AUTO) 68.7 % (43.0-81.0); PLATELET COUNT (AUTO) 318 /CMM (150-450); RED BLOOD CELL COUNT(AUTO) 3.92 MIL/uL (4.0-5.2); WHITE BLOOD COUNT (AUTO) 9.2 K/uL (4.3-11.0)
--- NOTE | 2019-02-19 07:34 | NUR ---
RN MS OPENING RECEIVED PATIENT IN BED. A/O MICRONESIAN SPEAKING ONLY. SLEEPING ABLE TO AROUSE WITH VOICE AND TOUCH. NO SIGNS OR SYMPTOMS OF RESPIRATORY DISTRESS OR ACUTE PAIN NOTED. IVF TO LFA D5NS WITH 20 MeQ KCL @ 100 ML/HR.PATIENT NPO AT THIS FOR POSSIBLE PROCEDUREIF DISLODGED STENT NOT PASSED LABS DRAWN SAFETY PRECAUTIONS IN PLACE BED IN LOW POSITION CALL LIGHT WITH IN REACH.
--- NOTE | 2019-02-19 07:35 | NUR ---
MS RN OPENING NOTE PT. SUPINE IN BED, ASLEEP BUT AROUSABLE. AZERI SPEAKING. NO SOB OR ACUTE DISTRESS NOTED. ON ROOM AIR. L FA IV 22G INFUSING. CLEAN, DRY, INTACT. BED LOW, BLOCKED, SIDE RAILS UP X2, BED ALARM ON, CALL LIGHT WITHIN REACH. WILL CONTINUE TO MONITOR
[2019-02-19 08:00] VITALS: BP 169/89
--- NOTE | 2019-02-19 09:25 | NUR ---
RN MS NOTES SPOKE WITH DR OH IN REGARDS TO POSSIBLE COLONOSCOPY TO REMOVE DISLODGED STENT.ORDERS FOR PATIENT TO REMAIN ON CLEAR LIQUIDS AND NPO AFTER MIDNIGHT FOR PROCEDURE IN AM 02/20 UNLESS ABLE TO DO TODAY 02/19. KEEP PATIENT NPO TILL MD CALLS.
[2019-02-19] MEDS: LOSARTAN POTASSIUM 50 MG TABLET PO SCH (09:29)
[2019-02-19] MEDS: PIPERACILLIN /TAZOBACTAM 3.375 G in IV D5W 100 ML IV SCH ×2 (09:30→21:28)
[2019-02-19] MEDS: METOPROLOL SUCCINATE 50 MG TAB.SR.24H PO SCH (09:30)
[2019-02-19] MEDS: LEVOTHYROXINE SODIUM 50 MCG TABLET PO SCH (09:30)
--- NOTE | 2019-02-19 09:54 | NUR ---
RN MS NOTES SPOKE WITH DR ARENAS COLONOSCOPY SCHEDULED FOR TODAY 02/19 3710. DAUGHTER AWARE AND WILL BE IN WITHIN THE HOUR TO SIGN CONSENT
--- NOTE | 2019-02-19 11:30 | NUR ---
MICHELLE MS NOTES DAUGHTER AT BEDSIDE ALL CONSENTS SIGNED BY DAUGHTER
--- NOTE | 2019-02-19 12:17 | NUR ---
RN MS NOTES PATIENT LEFT FOR COLONOSCOPY WITH SURGERY VIA BED DAUGHTER ACCOMPANIED
--- NOTE | 2019-02-19 14:04 | NUR ---
RN MS NOTE RECEIVED PT POST COLONOSCOPY AWAKE AND ALERT X4, DAUGHTER TIN AT BEDSIDE. TEMP 98F, HR 71, SPO2 97& ON 2L VIA NC, BP 152/84. PER REPORT, COMMON BILE DUCT STENT REMOVED FROM ASCENDING COLON. ORDERS OBTAINED AND FOLLOWED THROUGH. BED LOCKED, LOW, SIDE RAILS UPX2, BED ALARM ON, CALL LIGHT WITHIN REACH. WILL CONTINUE TO MONITOR
--- NOTE | 2019-02-19 14:37 | NUR ---
RN MS NOTES SPOKE WITH DR FORD IN REGARDS TO PATIENT ON UNIT AND RESULT OF SURGERY. RESUME ORDERS ALL ORDERS.
[2019-02-19 16:00] VITALS: BP 157/76
--- NOTE | 2019-02-19 19:27 | NUR ---
RN MS OPENING PATIENT A/O X2 IVORIAN SPEAKING ONLY.NO SIGNS OR SYMPTOMS OF RESPIRATORY DISTRESS OR ACUTE PAIN NOTED. IVF TO LFA D5NS WITH 20 MeQ KCL @ 75 ML/HR.PATIENT TOLERATED REGULAR DIET. NO ADVERSE REACTION TO COLONOSCOPY BOWEL SOUNDS RESUMED IN ALL QUADRANTS. SAFETY PRECAUTIONS IN PLACE BED IN LOW POSITION BED ALARM DELIVERY RN LIGHT WITH IN REACH. WILL ENDORSE TO NOC
--- NOTE | 2019-02-19 19:45 | NUR ---
SHIVA/SALES MERCHANDISER RECEIVED REPORT FROM DAY NURSE. SEE FLOWSHEET FOR ASSESSMENT ALONG WITH ANY AND ALL SKIN ISSUES WHICH ARE ADDRESSES ALONG WITH EACH INTERVENTIONS. ALSO SEE IV FLOWSHEET FOR THE RATES. PT WS TURNED AND REPOSITIONED FOR COMFORT AND CARE. WILL CONTINUE TO MONITOR THIS PT. NO ACUTE DISTRESS SEEN AT THIS TIME.
[2019-02-19 20:00] VITALS: BP 176/87
--- NOTE | 2019-02-19 21:13 | NUR ---
SHIVA/PRODUCT SALES REPRESENTATIVE PT'S 1999 VITAL SIGNS SHOWED HIGH BP WITH NO PRN. CALLED ELEMENTARY MATH TUTOR ДМИТРИЙ WHO THEN GAVE ORDER FOR PRN HYDRALAZINE 25MG PO Q 4 HRS . WILL CONTINUE TO MONITOR THIS PT'S BP.
[2019-02-19] MEDS: hydrALAZINE HCL 25 MG TABLET PO PRN (21:31)
--- NOTE | 2019-02-19 23:55 | NUR ---
SHIVA/ASSOCIATE PROFESSOR OF SOCIOLOGY CALLED PT'S FAMILY ABOUT PT, DUE TO PT'S LEVEL OF AGITATION. DAUGHTER TIN [phone] WAS CALLED. PT WAS ABLE TO TALK WITH FAMILY MEMBER. DAUGHTER SAID THAT PT WAS VERY CONFUSED. LIGHT IS ON, AND NURSE IS SITTING OUTSIDE ROOM FOR SAFETY.WILL CONTINUE TO MONITOR THIS PT.
--- NOTE | 2019-02-20 02:23 | NUR ---
SHIVA/LEGAL CONSULTANT PT COMPLAINED ABOUT NAUSEA, NOTIFIED COVERING RN WHO THEN GAVE ZOFRAN IVP. WILL CONTINUE TO MONITOR THIS PT AND HER NAUSEA. NO ACUTE DISTRESS SEEN AT THIS TIME.
[2019-02-20 04:00] VITALS: BP 178/90
[2019-02-20] MEDS: hydrALAZINE HCL 25 MG TABLET PO PRN (04:13)
--- NOTE | 2019-02-20 04:14 | NUR ---
SHIVA/TOY ELECTRIC TRAIN REPAIRER PT'S 399 VITAL SIGNS SHOWED HIGH BP OF 178/90 WITH HEART RATE OF 84. GAVE PRN HYDRALAZINE 25MG PO Q 4 HRS . WILL CONTINUE TO MONITOR THIS PT'S BP, NO ACUTE DISTRESS SEEN AT THIS TIME.
[2019-02-20] MEDS: LEVOTHYROXINE SODIUM 50 MCG TABLET PO SCH (05:31)
[2019-02-20 06:02] LABS: BASOPHILS % (AUTO) 0.4 % (0.0-2.0); EOSINOPHILS % (AUTO) 1.4 % (0.0-6.0); HEMATOCRIT 36 % (33-45); HEMOGLOBIN 11.9 g/dL (11.5-14.8); LYMPHOCYTES # (AUTO) 1.8 /CMM (0.8-4.8); LYMPHOCYTES % (AUTO) 18.5 % (20.0-44.0); MEAN CORPUSCULAR HGB CONC 33 g/dl (31.0-36.0); MEAN CORPUSCULAR VOLUME 88 fL (82-100); MONOCYTES # (AUTO) 0.6 /CMM (0.1-1.30); MONOCYTES % (AUTO) 5.9 % (2.0-12.0); NEUTROPHILS # (AUTO) 7.1 /CMM (1.8-8.9); NEUTROPHILS % (AUTO) 73.8 % (43.0-81.0); PLATELET COUNT (AUTO) 329 /CMM (150-450); RED BLOOD CELL COUNT(AUTO) 4.05 MIL/uL (4.0-5.2); WHITE BLOOD COUNT (AUTO) 9.6 K/uL (4.3-11.0)
[2019-02-20 06:18] LABS: CALCIUM, SERUM 9.6 mg/dL (8.5-10.1); CARBON DIOXIDE 23 mmol/L (21-32); CHLORIDE 109 mmol/L (98-107); CREATININE 1.1 mg/dL (0.6-1.3); GLUCOSE 113 mg/dL (74-106); POTASSIUM 3.6 mmol/L (3.5-5.1); SODIUM SERUM 144 mmol/L (136-145); UREA NITROGEN, BLOOD 14 mg/dL (7-18)
--- NOTE | 2019-02-20 07:40 | NUR ---
RN MS OPENING ASLEEP ABLE TO AROUSE PATIENT A/O X2 CHINESE SPEAKING ONLY.NO SIGNS OR SYMPTOMS OF RESPIRATORY DISTRESS OR ACUTE PAIN NOTED. IVF TO LFA D5NS WITH 20 MeQ KCL @ 75 ML/HR.POSSIBLE ORDERS FOR DISCHARGE SAFETY PRECAUTIONS IN PLACE BED IN LOW POSITION BED ALARM SERVICE TRANSFORMER REPAIR SUPERVISOR LIGHT WITH IN REACH. WILL ENDORSE TO NOC
[2019-02-20 08:00] VITALS: BP 143/72
[2019-02-20 08:09] VITALS: BP 143/72
[2019-02-20] MEDS: METOPROLOL SUCCINATE 50 MG TAB.SR.24H PO SCH (08:48)
[2019-02-20] MEDS: LOSARTAN POTASSIUM 50 MG TABLET PO SCH (08:48)
[2019-02-20] MEDS: PIPERACILLIN /TAZOBACTAM 3.375 G in IV D5W 100 ML IV SCH (08:49)
[2019-02-20 12:20] VITALS: BP 168/86
--- NOTE | 2019-02-20 12:21 | NUR ---
FELTMAKER NOTES PATIENT ORDERS FOR DISCHARGE TO HOME DAUGHTER AT BEDSIDE PATIENT STABLE. PHOTOS TAKEN IV REMOVED #22 GAUGE CATH INTACT. VS T 98.1 BP 168/86 HR 77 RR 20 O2 96% ON ROOM AIR. FOLLOW UP VISIT PROVIDED AND DAUGHTER AWARE ALL EXIT CARE AND EDUCATION UTILIZED. LEFT WITH [facility] VIA WHEELCHAIR AND PRIVATE TRANSPORTATION.
== END 2019-02-20 12:13 | disposition home or self-care (01) | DRG 919 ==
LOC: ER 21:12 → TELE1 02-17 00:35 → MEDSG1 02-17 01:02
PROVIDERS: ADMIT Nurse Practitioner Acute Care; ATTEND Nurse Practitioner Acute Care
PROC: 0DCH8ZZ Extirpation of Matter from Cecum, Via Natural or Artificial Opening Endoscopic (ICD-10-PCS; principal; 2019-02-19)
PROC: 0DCH8ZZ Extirpation of Matter from Cecum, Via Natural or Artificial Opening Endoscopic (ICD-10-PCS; 2019-02-19)
DX: T85.520A Displacement of bile duct prosthesis, initial encounter (principal); N17.0 Acute kidney failure with tubular necrosis; G93.41 Metabolic encephalopathy; K56.609 Unspecified intestinal obstruction, unspecified as to partial versus complete obstruction; E87.2 Acidosis; E44.0 Moderate protein-calorie malnutrition; E87.0 Hyperosmolality and hypernatremia; N39.0 Urinary tract infection, site not specified; Z79.82 Long term (current) use of aspirin; Y83.9 Surgical procedure, unspecified as the cause of abnormal reaction of the patient, or of later complication, without mention of misadventure at the time of the procedure; I12.9 Hypertensive chronic kidney disease with stage 1 through stage 4 chronic kidney disease, or unspecified chronic kidney disease; M19.90 Unspecified osteoarthritis, unspecified site; N18.9 Chronic kidney disease, unspecified; M06.9 Rheumatoid arthritis, unspecified; E78.5 Hyperlipidemia, unspecified; Y92.009 Unspecified place in unspecified non-institutional (private) residence as the place of occurrence of the external cause; Z95.5 Presence of coronary angioplasty implant and graft; Z95.1 Presence of aortocoronary bypass graft; Z87.11 Personal history of peptic ulcer disease; D69.6 Thrombocytopenia, unspecified; Z79.899 Other long term (current) drug therapy; L53.9 Erythematous condition, unspecified; R23.4 Changes in skin texture
CPT/HCPCS: 36415; 80048-TC; 80053-TC; 80061-TC; 80076-TC; 81000-TC; 83605-TC; 83690-TC; 83735-TC; 84100-TC; 84443-TC; 84484-TC; 85025-TC; 87040-TC; 87081-TC; 87086-TC; 88305-TC; 88312-TC; G0378; J2405; J2543; J2704; J3480; J3490; J7030; J7040; J7050; J7060

== ENCOUNTER 2019-11-15 13:41 | Inpatient (IN) | payer MEDICARE, OTHER ==
[~2019-11-15] VITALS: Ht 152.4 cm; Wt 45.0 kg
--- NOTE | 2019-11-15 13:48 | NUR ---
PT BIB RA WITH A C/O LOW BLOOD PRESSURE AND [address] RO[address] WORKER. PT'S DAUGHTER STATED THAT THE PT WAS WALKING IN THE HOUSE AND STATED THAT SHE HAD TO SIT DOWN. PT'S DAUGHTER ASSISTED HER TO THE LOVE SEAT WHERE THE PT ALMOST PASSED OUT. PT'S BP WAS LOW IN THE FIELD AND 20G IV WAS STARTED. PT REC'D APPROX 100 ML NS IN THE FIELD.
[2019-11-15 14:18] LABS: BASOPHILS % (AUTO) 0.3 % (0.0-2.0); EOSINOPHILS % (AUTO) 1.2 % (0.0-6.0); HEMATOCRIT 38 % (33-45); HEMOGLOBIN 12.2 g/dL (11.5-14.8); LYMPHOCYTES # (AUTO) 1.7 /CMM (0.8-4.8); LYMPHOCYTES % (AUTO) 18.4 % (20.0-44.0); MEAN CORPUSCULAR HGB CONC 32 g/dl (31.0-36.0); MEAN CORPUSCULAR VOLUME 90 fL (82-100); MONOCYTES # (AUTO) 0.4 /CMM (0.1-1.30); MONOCYTES % (AUTO) 3.9 % (2.0-12.0); NEUTROPHILS # (AUTO) 7.1 /CMM (1.8-8.9); NEUTROPHILS % (AUTO) 76.2 % (43.0-81.0); PLATELET COUNT (AUTO) 368 /CMM (150-450); RED BLOOD CELL COUNT(AUTO) 4.22 MIL/uL (4.0-5.2); WHITE BLOOD COUNT (AUTO) 9.4 K/uL (4.3-11.0)
[2019-11-15 14:25] LABS: CARBON DIOXIDE 27 mmol/L (21-32); CHLORIDE 111 mmol/L (98-107); CREATININE 1.7 mg/dL (0.6-1.3); GLUCOSE 174 mg/dL (74-106); POTASSIUM 4.1 mmol/L (3.5-5.1); SODIUM SERUM 148 mmol/L (136-145); UREA NITROGEN, BLOOD 46 mg/dL (7-18)
[2019-11-15 14:30] LABS: ALANINE AMINOTRANSFERASE 14 U/L (12-78); ALBUMIN 2.6 g/dL (3.4-5.0); ALKALINE PHOSPHATASE 120 U/L (46-116); ASPARTATE AMINOTRANSFERASE 14 U/L (15-37); BILIRUBIN,DIRECT 0.1 mg/dL (0.0-0.2); BILIRUBIN,TOTAL 0.4 mg/dL (0.2-1.0); TOTAL PROTEIN, SERUM 6.6 g/dL (6.4-8.2)
[2019-11-15] MEDS ORDERED: IV NS 0.9% 500 ML BAG IV ONE (14:30)
--- NOTE | 2019-11-15 14:51 | NUR ---
PT REC'D A WARM BLANKET AND A PILLOW. PT IS ON THE MONITOR AND CONTINUOUS PULSE OX.
--- NOTE | 2019-11-15 15:00 | NUR ---
PAGED [facility].
--- NOTE | 2019-11-15 15:23 | NUR ---
Navarro wooten in [facility] - 11/15/19 at 1524 by CLARICE PITER LEIGH
--- NOTE | 2019-11-15 15:24 | NUR ---
CALLED NURSING SUP FOT TELE BED.
--- NOTE | 2019-11-15 15:31 | NUR ---
DR HILL IS AT THE BEDSIDE SPEAKING TO THE PT.
--- NOTE | 2019-11-15 15:43 | NUR ---
DR GOMEZ IS AT THE BEDSIDE.
--- NOTE | 2019-11-15 15:43 | NUR ---
NURSING SUP GAVE TELE BED 115-2.
--- NOTE | 2019-11-15 15:47 | NUR ---
CALLING REPORT TO APPLICATIONS PROCESSOR. WILL CALL BACK IN 5 MINS.
[2019-11-15] MEDS ORDERED: IV 1/2NS 1000 ML 1,000 ML IV PRN (15:49)
--- NOTE | 2019-11-15 15:57 | NUR ---
CALLING REPORT TO SHIVA NURSE. MICHELLE FUENTES
[2019-11-15 16:00] VITALS: BP 163/77
[2019-11-15] MEDS ORDERED: Z GUARD REMEDY 2 OZ OINT TP PRN (16:00)
[2019-11-15] MEDS ORDERED: ACETAMINOPHEN 325 MG TABLET PO PRN (16:00)
[2019-11-15] MEDS ORDERED: ZOLPIDEM TARTRATE 5 MG TABLET PO PRN (16:00)
[2019-11-15] MEDS ORDERED: ONDANSETRON HCL/PF 4 MG/2 ML VIAL IVP PRN (16:00)
--- NOTE | 2019-11-15 16:00 | NUR ---
WHEEL LACER AND TRUER OPENING NOTES RECEIVED PATIENT FROM ER IN STABLE CONDITION, AT 1600. PATIENT IS ALERT AND ORIENTED X4, GERMAN AND ANGUILLAN SPEAKING. VITAL SIGNS STABLE. FAMILY AT BEDSIDE. PLACED ON TELE MONITOR, SINUS RHYTHM WITH PVC NOTED. NO SKIN ISSUES PRESENT ON ADMISSION. PATIENT IS AMBULATORY WITH ASSISTANCE, USES WALKER AT HOME. ON ROOM AIR, SATURATING WELL. IV ON RIGHT WRIST, INTACT, PATENT, AND FLUSHED WELL. SAFETY MAINTAINED. CALL LIGHT WITHIN REACH. WILL CONTINUE TO MONITOR PATIENT.
[2019-11-15 18:14] VITALS: BP 141/81
--- NOTE | 2019-11-15 19:30 | NUR ---
CUSTOMER PROGRAM SPECIALIST OPENING NOTE,CLOSING NOTES RECEIVED PATIENT IN BED RESTING. PATIENT IS IN STABLE CONDITION. A/O X 4. CAMEROONIAN SPEAKING. NO SOB OR NO ACUTE DISTRESS NOTED AT THIS MOMENT. PATIENT IS ON TELE MONITOR SR WITH HR 75. VITAL SIGNS STABLE. PATIENT IS AMBULATORY WITH ASSISTANCE, ON ROOM AIR, TOLERATING WELL. IV ON LEFT WRIST. PATENT, NOS/S OF INFILTRATION. SAFETY MAINTAINED, BED LOW/LOCKED POSITION, CALL LIGHT WITHIN REACH, WILL CONTINUE TO MONITOR.
--- NOTE | 2019-11-15 19:35 | NUR ---
SENIOR PROFESSIONAL SERVICES CONSULTANT CLOSING NOTES PATIENT IN STABLE CONDITION. NO ACUTE CHANGES TO PATIENT CONDITION DURING MY SHIFT. ALL ADMISSION PAPERWORK HAS BEEN DONE. PATIENT ALERT AND ORIENTED X4, VITAL SIGNS STABLE. SAFETY MAINTAINED, CALL LIGHT WITHIN REACH, ENDORSED TO BREAKER MECHANIC NURSE TO CONTINUE CARE.
[2019-11-15 20:00] VITALS: BP 156/75
[2019-11-16] VITALS: BP 145/67
[2019-11-16 04:00] VITALS: BP 126/68
--- NOTE | 2019-11-16 06:36 | NUR ---
SUPERVISOR MAPLE PRODUCTS CLOSING NOTES PATIENT IN BED RESTING. PATIENT IS IN STABLE CONDITION. A/O X 4. KAZAKH SPEAKING. NO SOB OR NO ACUTE DISTRESS NOTED AT THIS MOMENT. PATIENT IS ON TELE MONITOR SR FIRST DEGREE AV BLOCK, WITH HR 89. VITAL SIGNS STABLE. PATIENT IS AMBULATORY WITH ASSISTANCE, ON ROOM AIR, TOLERATING WELL. IV ON LEFT WRIST 0.45 NS 75 ML/HR. PATENT, NO S/S OF INFILTRATION. SAFETY MAINTAINED, BED LOW/LOCKED POSITION, CALL LIGHT WITHIN REACH, WILL CONTINUE TO MONITOR.
[2019-11-16 07:03] LABS: BASOPHILS % (AUTO) 0.3 % (0.0-2.0); EOSINOPHILS % (AUTO) 1.5 % (0.0-6.0); HEMATOCRIT 35 % (33-45); HEMOGLOBIN 11.3 g/dL (11.5-14.8); LYMPHOCYTES # (AUTO) 2.1 /CMM (0.8-4.8); LYMPHOCYTES % (AUTO) 21.4 % (20.0-44.0); MEAN CORPUSCULAR HGB CONC 33 g/dl (31.0-36.0); MEAN CORPUSCULAR VOLUME 87 fL (82-100); MONOCYTES # (AUTO) 0.5 /CMM (0.1-1.30); MONOCYTES % (AUTO) 4.8 % (2.0-12.0); PLATELET COUNT (AUTO) 328 /CMM (150-450); RED BLOOD CELL COUNT(AUTO) 3.99 MIL/uL (4.0-5.2); WHITE BLOOD COUNT (AUTO) 9.8 K/uL (4.3-11.0)
[2019-11-16 07:29] LABS: CALCIUM, SERUM 9.5 mg/dL (8.5-10.1); CREATININE 1.2 mg/dL (0.6-1.3); MAGNESIUM 1.4 mg/dL (1.8-2.4); PHOSPHORUS 2.8 mg/dL (2.5-4.9); POTASSIUM 3.4 mmol/L (3.5-5.1)
[2019-11-16 07:41] LABS: ALBUMIN 2.4 g/dL (3.4-5.0); BILIRUBIN,TOTAL 0.5 mg/dL (0.2-1.0); TOTAL PROTEIN, SERUM 6.1 g/dL (6.4-8.2)
--- NOTE | 2019-11-16 07:45 | NUR ---
PRISONER CLASSIFICATION INTERVIEWER OPENING NOTES RECEIVED MKRTCHYAN AWAKE ALERT/ORIENTED X4 ON BED HEAD BED AT SEMI-FOWLERS POSITION LEFT WRIST #22 PATENT WITH 0.45NS RUNNING AT 75 ML/HR INFUSING WELL, NO PAIN OR DISCOMFORT AT THIS TIME, PUT BED ON LOWEST POSITION, CALL LIGHT WITHIN REACH, WILL CONTINUE TO MONITOR THE PATIENT
[2019-11-16 08:00] VITALS: BP 128/79
[2019-11-16] MEDS ORDERED: ASPIRIN 81 MG TAB.CHEW PO SCH (09:00)
[2019-11-16] MEDS ORDERED: ATORVASTATIN 10 MG TABLET PO SCH (09:00)
[2019-11-16] MEDS: METOPROLOL SUCCINATE 50 MG TAB.SR.24H PO SCH (09:22)
[2019-11-16] MEDS: FOLIC ACID 1 MG TABLET PO SCH (09:22)
[2019-11-16] MEDS: LEVOTHYROXINE SODIUM 50 MCG TABLET PO SCH (09:23)
--- NOTE | 2019-11-16 09:23 | NUR ---
STORAGE RECEIPT POSTER NOTES ASPIRIN ADVIL IBUPROFEN SHOULD NOT BE ADMINISTER PER PATIENT DAUGHTER DUE TO ULCER WILL INFORM ATTENDING MD
[2019-11-16] MEDS ORDERED: POTASSIUM CHLORIDE 20 MEQ TAB.PRT.SR PO SCH (11:00)
[2019-11-16] MEDS: Magnesium 1GM/D5W 100ML PREMIX 100 ML IV SCH ×4 (11:33→16:46)
[2019-11-16] MEDS: IV 1/2NS 1000 ML 1,000 ML IV PRN (11:35)
[2019-11-16 12:00] VITALS: BP_SYST 125; BP_SYST 136; BP_DIAS 61; BP_DIAS 68
[2019-11-16] MEDS ORDERED: VALE150C PO (15:17)
[2019-11-16] MEDS ORDERED: TURM500C9 PO (15:17)
[2019-11-16] MEDS ORDERED: [UNRECOGNIZED DRUG - OTHER] (15:17)
[2019-11-16] MEDS ORDERED: MULT-594 PO (15:17)
[2019-11-16 16:00] VITALS: BP 125/68
--- NOTE | 2019-11-16 17:00 | NUR ---
PATTERN MOLDER NOTES URINE SPECIMEN OBTAIN.CALL THE LAB AND INFORMED THAT THE SPECIMEN IS READY FOR BODY SHOP FLOORPERSON
[2019-11-16 17:29] LABS: APPEARANCE,URINE CLEAR (CLEAR); BILIRUBIN,URINE NEGATIVE (NEGATIVE); BLOOD, URINE NEGATIVE Ery/uL (NEGATIVE); COLOR,URINE YELLOW (YELLOW); KETONES,URINE NEGATIVE (NEGATIVE); LEUKOCYTE ESTERASE ,URINE NEGATIVE (NEGATIVE); NITRITE, URINE NEGATIVE (NEGATIVE); PROTEIN,URINE NEGATIVE (NEGATIVE); UGLUCOSE NEGATIVE (NEGATIVE); UROBILINOGEN,URINE 0.2 EU/dL (0.2)
--- NOTE | 2019-11-16 17:30 | NUR ---
ZMT OPERATOR NOTES CLOSING PATIENT IN BED A/OX4 COMORAN SPEAKER.NO SOB OR DISCOMFORT NOTED AT THIS TIME.ALL NEEDS ATTENDED , MEDICATION ADMINISTRATED. NO MAJOR CHANGES DURING SHIFT. BED AT THE LOWEST POSITION LOCKED, CALL LIGHT WITHIN REACH. ENDORSED TO PLANT PRODUCTION WORKER NURSE FOR [place]TA.
[2019-11-16 17:36] LABS: CREATININE, URINE 20.6 MG/DL (30.0-125.0); URINE TOTAL PROTEIN 2.8 mg/dL (0-11.9)
[2019-11-16 18:15] LABS: EOSINOPHIL,URINE None Seen
[2019-11-16 20:00] VITALS: BP 165/92
--- NOTE | 2019-11-16 21:39 | NUR ---
TELE1/RN ON INITIAL ROUNDING AT 1930, PATIENT WAS AWAKE, ALERT, ORIENTED, COMFORTABLE, NO DISTRESS NOTED, CALL LIGHT IN REACH. WILL MONITOR.
--- NOTE | 2019-11-16 21:57 | NUR ---
TELE1/RN RETURNED THE CALL OF THE DAUGHTER TIN AT [phone], LEFT MESSAGE.
--- NOTE | 2019-11-16 22:08 | NUR ---
TELE1/RN PATIENT WAS ENDORSED TO NEXT RN FOR CONTINUITY OF CARE.
[2019-11-17] VITALS: BP 155/86
[2019-11-17] MEDS: IV 1/2NS 1000 ML 1,000 ML IV PRN (00:23)
[2019-11-17 04:00] VITALS: BP 165/83
--- NOTE | 2019-11-17 07:30 | NUR ---
DESKTOP PUBLISHING OPERATOR OPENING NOTES RECEIVED PATIENT RESTING IN BED, A/O X3, ON ROOM AIR, SATURATING WELL AT 98%. GREEK SPEAKING ONLY. NO SIGNS AND SYMPTOMS OF RESPIRATORY DISTRESS IS NOTED, Addendum: 11/17/19 at 0816 by [place] TIWARI RN PATIENT IS IN STABLE CONDITION, ON TELE MONITOR, SR WITH BBB ON THE MONITOR. IV ON LEFT WRIST, INTACT, PATENT, FLUSHED WELL. NO S/S OF INFECTION NOTED. WILL NOT ADMINISTER ASPIRIN PER PATIENT FAMILY REQUEST. SAFETY MAINTAINED, CALL LIGHT WITHIN REACH, WILL CONTINUE TO MONITOR.
[2019-11-17 07:33] LABS: BASOPHILS % (AUTO) 0.2 % (0.0-2.0); EOSINOPHILS % (AUTO) 0.9 % (0.0-6.0); HEMATOCRIT 38 % (33-45); HEMOGLOBIN 12.2 g/dL (11.5-14.8); LYMPHOCYTES # (AUTO) 1.5 /CMM (0.8-4.8); MEAN CORPUSCULAR HGB CONC 33 g/dl (31.0-36.0); MEAN CORPUSCULAR VOLUME 89 fL (82-100); MONOCYTES # (AUTO) 0.3 /CMM (0.1-1.30); MONOCYTES % (AUTO) 3.8 % (2.0-12.0); NEUTROPHILS # (AUTO) 7.3 /CMM (1.8-8.9); NEUTROPHILS % (AUTO) 79.1 % (43.0-81.0); PLATELET COUNT (AUTO) 324 /CMM (150-450); RED BLOOD CELL COUNT(AUTO) 4.22 MIL/uL (4.0-5.2); WHITE BLOOD COUNT (AUTO) 9.2 K/uL (4.3-11.0)
--- NOTE | 2019-11-17 07:59 | NUR ---
ACCOUNT STRATEGIST CLOSING NOTES PATIENT IN BED RESTING. PATIENT IS IN STABLE CONDITION. A/O X 3. POLISH SPEAKING. NO SOB OR NO ACUTE DISTRESS NOTED AT THIS MOMENT. PATIENT IS ON TELE MONITOR SR FIRST DEGREE AV BLOCK, WITH HR 89. VITAL SIGNS STABLE. PATIENT IS BED REST SHE TRIED TO LEAVE BED SITE LEASING AGENT, ON ROOM AIR, TOLERATING WELL. IV ON LEFT WRIST 0.45 NS 150 ML/HR. PATENT, NO S/S OF INFILTRATION. SAFETY MAINTAINED, BED LOW/LOCKED POSITION, CALL LIGHT WITHIN REACH, WILL ENDORSE TO AM RN
[2019-11-17 08:00] VITALS: BP 181/93
[2019-11-17 08:23] LABS: ALBUMIN 2.5 g/dL (3.4-5.0); BILIRUBIN,TOTAL 0.5 mg/dL (0.2-1.0); CALCIUM, SERUM 9.6 mg/dL (8.5-10.1); CREATININE 1.2 mg/dL (0.6-1.3); MAGNESIUM 2.4 mg/dL (1.8-2.4); PHOSPHORUS 2.9 mg/dL (2.5-4.9); POTASSIUM 3.7 mmol/L (3.5-5.1); TOTAL PROTEIN, SERUM 6.5 g/dL (6.4-8.2)
[2019-11-17] MEDS ORDERED: VALSARTAN 80 MG TABLET PO SCH (09:00)
[2019-11-17] MEDS: FOLIC ACID 1 MG TABLET PO SCH (09:24)
[2019-11-17] MEDS: METOPROLOL SUCCINATE 50 MG TAB.SR.24H PO SCH (09:25)
[2019-11-17] MEDS: LEVOTHYROXINE SODIUM 50 MCG TABLET PO SCH (09:28)
[2019-11-17] MEDS ORDERED: NITROGLYCERIN 30 GM TUBE TP SCH (11:00)
[2019-11-17] MEDS: hydrALAZINE HCL 50 MG TABLET PO SCH ×2 (11:35→13:00)
[2019-11-17 13:00] VITALS: BP 127/70
--- NOTE | 2019-11-17 14:00 | NUR ---
WANT AD SUPERVISOR CLOSING NOTES PATIENT WAS DISCHARGED HOME, PICKED UP BY DAUGHTER. DC ORDERS REVIEWED, VITAL SIGNS WERE STABLE. DISCHARGE INSTRUCTIONS WERE PROVIDED TO PATIENT AND FAMILY. NO NEW MED ORDERS, ORDERED TO CONTINUE HOME MEDS BEFORE. PATIENT IN STABLE CONDITION, TAKEN OUT OF THE HOSPITAL VIA WHEELCHAIR. INSTRUCTED TO FOLLOW UP WITH PCP.
== END 2019-11-17 15:00 | disposition home or self-care (01) | DRG 73 ==
LOC: ER 13:44 → TELE1 16:03 → MEDSG1 11-17 11:14
PROVIDERS: ADMIT Internal Medicine; ATTEND Nurse Practitioner Acute Care
DX: G90.8 Other disorders of autonomic nervous system (principal); N17.0 Acute kidney failure with tubular necrosis; G93.41 Metabolic encephalopathy; I50.32 Chronic diastolic (congestive) heart failure; E87.0 Hyperosmolality and hypernatremia; M85.80 Other specified disorders of bone density and structure, unspecified site; I25.10 Atherosclerotic heart disease of native coronary artery without angina pectoris; Z95.1 Presence of aortocoronary bypass graft; Z98.890 Other specified postprocedural states; I11.0 Hypertensive heart disease with heart failure; E78.00 Pure hypercholesterolemia, unspecified; E03.9 Hypothyroidism, unspecified; E78.5 Hyperlipidemia, unspecified; I70.0 Atherosclerosis of aorta; Z79.82 Long term (current) use of aspirin; Z79.899 Other long term (current) drug therapy; Z87.11 Personal history of peptic ulcer disease; Z79.890 Hormone replacement therapy; M06.9 Rheumatoid arthritis, unspecified; M19.90 Unspecified osteoarthritis, unspecified site; N27.1 Small kidney, bilateral; N32.3 Diverticulum of bladder; Z96.653 Presence of artificial knee joint, bilateral; Z96.649 Presence of unspecified artificial hip joint
CPT/HCPCS: 36415; 71045-TC; 76770-TC; 80048-TC; 80053-TC; 80076-TC; 81000-TC; 82570-TC; 83735-TC; 83880; 84100-TC; 84155-TC; 84300-TC; 84484-TC; 85025-TC; 87081-TC; 87086-TC; G0378; J3475; J3490